=== PATIENT | female | born 1935 | race Two or more races ===

== ENCOUNTER → 2017-06-05 | Outpatient (CLI) | payer MEDICARE, BC ==
--- NOTE | 2017-06-05 16:08 | PE ---
EXAMINATION TYPE: PET CT fusion skull to thigh DATE OF EXAM: 06/05/2017 COMPARISON: Chest x-ray April 19, 2017 HISTORY: Solitary pulmonary nodule per order. History of right-sided breast cancer 2005. TECHNIQUE: Following the intravenous administration of 13.699 mCi of F-18 FDG, whole body images are performed from the skull base to the midthigh. Images are reviewed on the computer in the coronal, axial, and sagittal planes. Reconstructed rotating images are created on independent workstation and reviewed on the computer. A localization and attenuation correction CT is performed in conjunction with the PET scan. SCAN: Initial Scan FINDINGS: SKULL BASE AND NECK: Increased uptake at level of thyroid gland supraclavicular region with adjacent prominent lymph nodes favor supraclavicular adenopathy over primary thyroid lesions axial image 42. There is additional high right paraesophageal hypermetabolic 1.0 x 1.0 cm lymph node with max SUV 5.6 1 on axial image 45. CHEST, MEDIASTINUM, AND HILAR REGION: There is background moderate emphysematous change suspected. Th ere is moderate size right pleural effusion with associated compressive atelectasis. Registered motio n artifact degradation is seen. There are scattered hypermetabolic nodules throughout the right lung and to lesser degree in the left lung. For reference posterior lingular nodule measures 1.6 x 1.1 cm axial image 75 with mild hyperme tabolic uptake, max SUV of 2.73. For reference anterior right middle lobe nodule measures 1.4 x 1.0 c m axial image 69 with max SUV of 4.93. This nodule abuts the pleural surface. There is hypermetabolic right paratracheal lymph node measuring 1.2 x 1.1 cm on axial image 57 with m ax SUV of 4.61. There is confluent hypermetabolic uptake at subcarinal level encasing the bronchus in termedius near axial image 66, max SUV is 5.92. There is suspicious left hilar hypermetabolic lymph n ode axial image 67 with max SUV 3.19. ABDOMEN AND PELVIS: No adrenal masses are noted. There is slightly more prominent hypermetabolic upta ke upper pole level right kidney seen PET image 115 could reflect prominent renal calyx, renal neopla sm cannot be excluded. No obvious abnormality is seen on CT images. Favor normal excretion. Further w orkup advised to confirm. Remainder of abdomen and pelvis shows no suspicious hypermetabolic uptake. Normal bladder excretion i s seen. OSSEOUS STRUCTURES: There is mottled hypermetabolic uptake in right proximal femur extending through femoral neck and intertrochanteric level. There is additional hypermetabolic sclerotic area left yanira c bone near initial tuberosity axial image 185. There is hypermetabolic uptake right sternoclavicular joint axial image 50. There is hypermetabolic uptake midthoracic vertebra as well as right aspect T1 2 vertebra axial image 103 that corresponds to irregular sclerotic area extending into pedicle. Findi ng suggest osseous metastatic disease. OTHER CT: Moderate calcified plaque bilateral carotid bulbs is seen. There is cardiomegaly with severe biatrial dilatation. There is dense calcification level of mitral v alvular annulus. Right breast is surgically absent. Surgical clips right axillary are seen. Distended gallbladder is present. Sigmoid colonic diverticulosis is seen without CT evidence for acute diverticulitis. IMPRESSION: PET CT findings are consistent with diffuse metastatic disease with thoracic adenopathy, definitive right lung nodules, probable left lung nodules, and osseous metastatic disease as detailed above. Consider primary source recurrent breast neoplasm. Moderate size right-sided effusion does no t show increased hypermetabolic uptake. Advise follow-up imaging of the kidneys.
== END | disposition home or self-care (01) ==
LOC: RADPETMAIN 12:11
PROVIDERS: ATTEND Internal Medicine Critical Care Medicine
DX: J90 Pleural effusion, not elsewhere classified (principal)
CPT/HCPCS: 78815; A9552

== ENCOUNTER → 2017-06-17 | Day surgery (SDC) | payer MEDICARE, BC ==
[~2017-06-17] MED LIST: SODIUM CHLORIDE 0.9% 500 ML in EMPTY BAG 1 BAG IV PRN
[2017-06-17 11:49] VITALS: BP 142/79; PULSE 99
[2017-06-17 11:51] VITALS: RESP 16; TEMP 98
--- NOTE | 2017-06-17 12:07 | US ---
EXAMINATION TYPE: US chest DATE OF EXAM: 06/17/2017 COMPARISON: 03/06/2017 CLINICAL HISTORY: J90 Pleural Effusion, C50.919, R91.8 Nodule. SOB, right effusion, breast CA EXAM MEASUREMENTS: Right Pleural Effusion fluid pocket: 11.9 cm Right skin to fluid thickness: 3.6 cm Right side marked for possible thoracentesis outside the dept. Pulmonologists are able to review the images in the patient?s EMR. IMPRESSIONS: Large right pleural effusion
--- NOTE | 2017-06-17 13:24 | XR ---
EXAMINATION TYPE: XR chest 1V portable DATE OF EXAM: 06/17/2017 COMPARISON: PET/CT June 05, 2017. Chest x-ray April 19, 2017. HISTORY: Right-sided thoracentesis. TECHNIQUE: Single frontal view of the chest is obtained. FINDINGS: Osseous structures remain demineralized. There is underlying scoliosis in the upper lumbar spine redemonstrated. There is cardiomegaly with atherosclerotic thoracic aorta. There is small to m oderate right pleural effusion remains present despite right-sided thoracentesis. There is chronic pa renchymal change bilaterally without sizable pneumothorax. Scattered nodules on PET/CT are less well seen on x-ray. Dense mitral annular calcifications are redemonstrated. IMPRESSION: No sizable pneumothorax after right-sided thoracentesis
[2017-06-17 20:40] LABS: Appearance,BF Clear; Color,BF Yellow; Nucleated Cells, Body Fluid 1060 /uL; RBC, Body Fluid 275 /uL
[2017-06-17 20:42] LABS: Mononuclear WBC,Body Fluid 95 %; Polynuclear WBC,Body Fluid 5 %
--- NOTE | 2017-06-17 20:45 | OP ---
OPERATIVE REPORT DATE OF SERVICE: 06/17/2017. DESCRIPTION OF PROCEDURE: A time-out was completed verifying correct patient, procedure, site, positioning, and implant (s) or special equipment if applicable. The right posterior chest was marked and ultrasound guidance was used and appropriate fluid pocket was identified and marked. Patient was positioned, prepped and draped in usual sterile fashion. Lidocaine was used to anesthetize the area. A Thoracentesis catheter was introduced into the pleural space and fluid was removed. Blood loss was none. A chest x-ray was ordered to evaluate for pneumothorax, after the procedure was performed. Total Fluid Removed was 500 mL, from the right pleural space. Fluid will be sent for appropriate laboratory tests. Patient tolerated the procedure well and there were no complications. MMODL / IJN: [id number] /
[2017-06-18 01:58] LABS: Total Protein, Body Fluid 2794 mg/dL
== END ==
LOC: PROCWHC3 10:33
PROVIDERS: ATTEND Internal Medicine Critical Care Medicine
DX: J90 Pleural effusion, not elsewhere classified (principal); C50.919 Malignant neoplasm of unspecified site of unspecified female breast
CPT/HCPCS: 87798 ×3; 87496; 87498; 87529; 88108; 88305; 89050; 88342; 87252; 87502; 87634; 88341; 87070; 87205; 87116; 87102; 87206; 82945; 83615; 84157; 71045; 76604; 32554; J2001

== ENCOUNTER 2017-08-31 16:57 | Emergency (ER) | payer MEDICARE, BC ==
[2017-08-31] MEDS ORDERED: FUROSEMIDE 10 MG/ML 4 ML VIAL IV STA (17:20)
--- NOTE | 2017-08-31 17:26 | ED ---
General Adult HPI - General Chief complaint: Shortness of Breath Stated complaint: Fluid on lungs Time Seen by Provider: 08/31/17 17:07 Source: patient, family, RN notes reviewed Mode of arrival: wheelchair Limitations: no limitations - History of Present Illness Initial comments: Patient is a pleasant 81-year-old female presenting to the emergency Department with dyspnea. Symptoms are somewhat chronic however worse the past couple of days. Patient was at her oncologist office today. Patient had outpatient CT and x-ray done as well as some blood work. Patient was advised come the emergency department. Patient does admit to mild nonproductive cough. Dyspnea does worsen with exertion. Legs are mildly swollen. No chest pain. Patient does see oncology secondary to recurrent breast cancer and is currently undergoing treatment. - Related Data Home Medications Medication Instructions Recorded Confirmed Atorvastatin [Lipitor] 40 mg PO Q72H 03/05/17 08/31/17 Cholecalciferol [Vitamin D3] 1,000 unit PO DAILY@0800 03/05/17 08/31/17 Furosemide [Lasix] 20 mg PO DAILY 03/05/17 08/31/17 Levothyroxine Sodium [Synthroid] 200 mcg PO DAILY@0600 03/05/17 08/31/17 Omeprazole [PriLOSEC] 20 mg PO DAILY@0800 03/05/17 08/31/17 Vit C/E/Zn/Coppr/Lutein/Zeaxan 1 cap PO BID 03/05/17 08/31/17 [Preservision Areds 2 Softgel] Acetaminophen Tab [Tylenol Tab] 500 mg PO Q6HR PRN 08/31/17 08/31/17 Dronabinol [Marinol] 5 mg PO DAILY 08/31/17 08/31/17 busPIRone HCl [Buspar] 2.5 mg PO BID 08/31/17 08/31/17 traMADol HCL [Ultram] 50 mg PO Q6HR PRN 08/31/17 08/31/17 Previous Rx's Medication Instructions Recorded Apixaban [Eliquis] 2.5 mg PO BID #60 tablet 03/10/17 Lisinopril [Zestril] 5 mg PO DAILY #30 tab 03/10/17 Metoprolol Tartrate [Lopressor] 12.5 mg PO TID #90 tab 11/01/17 Allergies Allergy/AdvReac Type Severity Reaction Status Date / Time verapamil AdvReac Unknown Verified 08/31/17 17:33 Review of Systems ROS Statement: Those systems with pertinent positive or pertinent negative responses have been documented in the HPI. ROS Other: All systems not noted in ROS Statement are negative. Constitutional: Denies: fever Eyes: Denies: eye pain ENT: Denies: ear pain Respiratory: Reports: cough, dyspnea Cardiovascular: Denies: chest pain Endocrine: Reports: fatigue Gastrointestinal: Denies: abdominal pain Genitourinary: Denies: dysuria Musculoskeletal: Denies: back pain Skin: Denies: rash Neurological: Denies: weakness Past Medical History Past Medical History: Atrial Fibrillation, Cancer, CVA/TIA, Hypertension, Osteoarthritis (OA), Thyroid Disorder Additional Past Medical History / Comment(s): rt breast cancer -had sx and chemo 2004, tia, past gout, rt eye macular degeneration. C/o "leg cramps lt lt foot/ankle daily" History of Any Multi-Drug Resistant Organisms: None Reported Past Surgical History: Breast Surgery Additional Past Surgical History / Comment(s): Right masectomy, cataracts. "HAD A PNE VACCINE IN LESS THAN 5 YEARS NOT SURE OF DATE-OFFICE CLOSED AT TIME OF THIS ADMIT Past Anesthesia/Blood Transfusion Reactions: No Reported Reaction Past Psychological History: Anxiety Smoking Status: Never smoker Past Alcohol Use History: Rare Past Drug Use History: None Reported - Past Family History Father Family Medical History: Cancer Additional Family Medical History / Comment(s): lung cancer-was smoker. Mother Family Medical History: No Reported History Additional Family Medical History / Comment(s): " from old age" Brother(s) Family Medical History: Cancer Additional Family Medical History / Comment(s): lung cancer-smoker. General Exam Limitations: no limitations General appearance: alert, in no apparent distress Head exam: Present: atraumatic Eye exam: Present: normal appearance, PERRL ENT exam: Present: normal oropharynx Neck exam: Present: normal inspection Respiratory exam: Present: decreased breath sounds (Especially on the right base ) Cardiovascular Exam: Present: irregular rhythm GI/Abdominal exam: Present: soft. Absent: tenderness Extremities exam: Present: pedal edema. Absent: calf tenderness Neurological exam: Present: alert Psychiatric exam: Present: normal affect, normal mood Skin exam: Present: normal color Course Vital Signs 08/31/17 08/31/17 08/31/17 17:09 17:38 19:01 Temperature 99.9 F H Pulse Rate 105 H 122 H 109 H Respiratory 20 16 16 Rate Blood Pressure 142/104 166/94 166/104 O2 Sat by Pulse 97 96 97 Oximetry - Reevaluation(s) Reevaluation #1: 08/31/17 17:25 Blood work prior to arrival shows white blood cell count of 3.1, hemoglobin 12.9 , hematocrit 39.3, platelet 181. Two-view chest x-ray shows COPD with stable bilateral airspace disease and pleural effusion. Interstitial lung disease or venous congestion is considered. Computed tomography scan of the chest shows no pulmonary embolism. Cardiomegaly with moderate right and small left effusions. Suspected CHF exacerbation. New alveolar and interstitial edema. Enlarging nodules scattered with metastatic lesion T12. Medical Decision Making - Medical Decision Making Patient reevaluated and resting comfortably in bed. Blood pressure is high. Patient is requesting discharge multiple times. Patient refuses admission. Case was discussed in detail with Dr. Gonzalez who is comfortable with this. Patient states she does have a known history of CHF with similar symptoms. Patient did not take her blood pressure medicine earlier today. Family is present and also requesting discharge. It is recommended blood pressure be improved prior to discharge however they do not want to wait for that. At this time they're agreeable to provide patient's home medicine prior to discharge. - Lab Data Result diagrams: 08/31/17 17:36 Lab Results 08/31/17 08/31/17 08/31/17 Range/Units 17:36 17:36 17:36 PT (9.0-12.0) sec INR (<1.2) APTT (22.0-30.0) sec Sodium 139 (137-145) mmol/L Potassium 3.5 (3.5-5.1) mmol/L Chloride 101 (98-107) mmol/L Carbon Dioxide 23 (22-30) mmol/L Anion Gap 15 mmol/L BUN 17 (7-17) mg/dL Creatinine 0.60 (0.52-1.04) mg/dL Est GFR (CKD-EPI)AfAm >90 (>60 ml/min/1.73 sqM) Est GFR (CKD-EPI)NonAf 85 (>60 ml/min/1.73 sqM) Glucose 103 H (74-99) mg/dL Calcium 9.6 (8.4-10.2) mg/dL Total Bilirubin 0.9 (0.2-1.3) mg/dL AST 105 H (14-36) U/L ALT 99 H (9-52) U/L Alkaline Phosphatase 128 H (38-126) U/L Total Creatine Kinase 159 H (30-135) U/L CK-MB (CK-2) 2.7 H* (0.0-2.4) ng/mL CK-MB (CK-2) Rel Index 1.7 Troponin I 0.025 (0.000-0.034) ng/mL NT-Pro-B Natriuret Pep 1590 pg/mL Total Protein 7.3 (6.3-8.2) g/dL Albumin 4.0 (3.5-5.0) g/dL 08/31/17 Range/Units 17:36 PT 11.6 (9.0-12.0) sec INR 1.2 H (<1.2) APTT 21.0 L (22.0-30.0) sec Sodium (137-145) mmol/L Potassium (3.5-5.1) mmol/L Chloride (98-107) mmol/L Carbon Dioxide (22-30) mmol/L Anion Gap mmol/L BUN (7-17) mg/dL Creatinine (0.52-1.04) mg/dL Est GFR (CKD-EPI)AfAm (>60 ml/min/1.73 sqM) Est GFR (CKD-EPI)NonAf (>60 ml/min/1.73 sqM) Glucose (74-99) mg/dL Calcium (8.4-10.2) mg/dL Total Bilirubin (0.2-1.3) mg/dL AST (14-36) U/L ALT (9-52) U/L Alkaline Phosphatase (38-126) U/L Total Creatine Kinase (30-135) U/L CK-MB (CK-2) (0.0-2.4) ng/mL CK-MB (CK-2) Rel Index Troponin I (0.000-0.034) ng/mL NT-Pro-B Natriuret Pep pg/mL Total Protein (6.3-8.2) g/dL Albumin (3.5-5.0) g/dL Disposition Clinical Impression: CHF (congestive heart failure) Disposition: HOME SELF-CARE Condition: Stable Instructions: Heart Failure (ED) Additional Instructions: Please follow-up with primary care physician tomorrow as well as Dr. Gonzalez. Return for difficulty breathing, chest pain, uncontrolled blood pressure, worsening symptoms or other concerns. Please take 1 additional dose of Lasix for the next 3 days. Is patient prescribed a controlled substance at d/c from ED?: No Referrals: Nonstaff,Physician [REFERRING] - 1-2 days Time of Disposition: 19:33
[2017-08-31 18:07] LABS: INR 1.2 (<1.2); Prothrombin Time 11.6 sec (9.0-12.0)
[2017-08-31 18:14] LABS: ALT 99 U/L (9-52); AST 105 U/L (14-36); Alkaline Phosphatase 128 U/L (38-126); Anion Gap 15 mmol/L; Blood Urea Nitrogen 17 mg/dL (7-17); Calcium 9.6 mg/dL (8.4-10.2); Carbon Dioxide 23 mmol/L (22-30); Chloride 101 mmol/L (98-107); Glucose 103 mg/dL (74-99); Sodium 139 mmol/L (137-145); Total Bilirubin 0.9 mg/dL (0.2-1.3); Total Protein 7.3 g/dL (6.3-8.2)
[2017-08-31 18:16] LABS: Potassium 3.5 mmol/L (3.5-5.1)
[2017-08-31 18:30] LABS: Troponin I 0.025 ng/mL (0.000-0.034)
[2017-08-31 18:31] LABS: Creatine Kinase MB 2.7 ng/mL (0.0-2.4)
[2017-08-31 19:01] VITALS: PULSE 109
[2017-08-31] MEDS ORDERED: METOPROLOL TARTRATE 12.5 MG TAB PO STA (19:34)
[2017-08-31] MEDS ORDERED: LISINOPRIL 5 MG TAB PO STA (19:34)
[2017-08-31 19:38] VITALS: BP 156/80; RESP 19
[2017-08-31 20:10] VITALS: TEMP 97.8
== END 2017-08-31 20:09 | disposition home or self-care (01) ==
LOC: EC 16:57
DX: I11.0 Hypertensive heart disease with heart failure (principal); I50.9 Heart failure, unspecified; I48.91 Unspecified atrial fibrillation; E07.9 Disorder of thyroid, unspecified; F41.9 Anxiety disorder, unspecified; Z85.3 Personal history of malignant neoplasm of breast; Z79.899 Other long term (current) drug therapy; Z88.8 Allergy status to other drugs, medicaments and biological substances; Z53.29 Procedure and treatment not carried out because of patient's decision for other reasons; Z86.73 Personal history of transient ischemic attack (TIA), and cerebral infarction without residual deficits
CPT/HCPCS: 99285 ×2; 96374 ×2; 36415 ×2; 83880; 80053; 82565; 82550; 82553; 84520; 84484; 85610; 85730; 71046; 71275; 96372; 96402; J1940; J9395; J0897; Q9967

== ENCOUNTER 2017-09-22 10:38 | Day surgery (SDC) | payer MEDICARE, BC ==
[2017-09-22 11:40] VITALS: BP 129/93; PULSE 127; TEMP 97.7
[2017-09-22 11:41] VITALS: RESP 20
--- NOTE | 2017-09-22 12:40 | XR ---
EXAMINATION TYPE: XR chest 1V portable DATE OF EXAM: 09/22/2017 Comparison: 08/31/2017 Clinical History: 81-year-old female post thoracentesis Findings: There is small residual right-sided pleural effusion with meniscus tracking up the right lateral ches t wall to the mid lung level. Adjacent right basilar density. Patchy opacity throughout the left lung has increased particularly at the mid lung and lower lung levels. Diffuse interstitial prominence. H eart mildly enlarged. Atherosclerotic arch calcifications. Surgical clips at the right axilla. No pili reciable pneumothorax. Impression: 1. Residual small right pleural effusion. Adjacent atelectasis and/or consolidation. No appreciable p neumothorax. 2. Worsening opacity left mid and lower lung. Given interstitial prominence and cardiomegaly, correla te for CHF and developing pulmonary edema.
--- NOTE | 2017-09-22 12:41 | PCN ---
PROCEDURE NOTE PROCEDURE: Right thoracentesis. INDICATION: Pleural effusion. There was informed consent and universal timeout. OPERATORS: Dr. Castañeda and Dr. Felix. PROCEDURE: A time-out was completed verifying correct patient, procedure, site, positioning , and implant (s) or special equipment if applicable. Ultrasound guidance used and appropriate fluid pocket was identified and marked. Patient was positioned, prepped and draped in usual sterile fashion. Lidocaine was used to anesthetize the area. A Thoracentesis catheter was introduced into the pleural space and fluid was removed. Blood loss was none. A chest x-ray was ordered to evaluate for pneumothorax. Total Fluid Removed: 1250 mL Color of Fluid Fluid was not sent for appropriate laboratory tests. Patient tolerated the procedure well and there were no complications. There was 1250 mL removed from the right pleural space. The fluid was not sent for analysis as the patient had fluid analyzed prior. There was no immediate complication. A chest x-ray was done to make sure there was no pneumothorax. MMODL / IJN: [id number] /
== END 2017-09-22 15:57 | disposition home or self-care (01) ==
LOC: PROCWHC3 10:38
PROVIDERS: ATTEND Internal Medicine Critical Care Medicine
DX: J90 Pleural effusion, not elsewhere classified (principal)
CPT/HCPCS: 71045; 32554; J2001

== ENCOUNTER → 2017-09-22 | Outpatient (CLI) | payer MEDICARE, BC ==
--- NOTE | 2017-09-22 11:28 | US ---
EXAMINATION TYPE: US chest DATE OF EXAM: 09/22/2017 COMPARISON: CT 08/31/2017 CLINICAL HISTORY: 81-year-old female J91.8 R SIDED PLEURAL EFFUSION. SOB, pleural effusion RT TECHNIQUE: Multiple sonographic images of the posterior lower right hemithorax were obtained for asse ssment of pleural effusion. FINDINGS: EXAM MEASUREMENTS: Right Pleural Effusion fluid pocket: 11.7 cm Right skin surface to fluid distance: 3.9 cm Pleural-based nodularity is noted. Right side marked for possible thoracentesis outside the dept. Pulmonologists are able to review the images in the patient?s EMR. IMPRESSIONS: 1. Moderate to large right effusion. 2. Some pleural-based nodularity suggests underlying metastatic disease.
== END | disposition home or self-care (01) ==
LOC: RADUSWWP 10:21
PROVIDERS: ATTEND Internal Medicine Critical Care Medicine
DX: J90 Pleural effusion, not elsewhere classified (principal); R91.8 Other nonspecific abnormal finding of lung field
CPT/HCPCS: 76604

== ENCOUNTER 2017-09-23 10:16 | Inpatient (IN) | payer MEDICARE, BC ==
[2017-09-23] MEDS ORDERED: LORazepam 2 MG/ML INJ IV STA (11:39)
[2017-09-23] MEDS ORDERED: SODIUM CHLORIDE 0.9% 1,000 ML IV STA (11:39)
[2017-09-23] MEDS ORDERED: IPRATROPIUM-ALBUTEROL 3 ML NEB INHALATION STA (11:39)
--- NOTE | 2017-09-23 12:01 | ED ---
General Adult HPI - General Chief complaint: Recheck/Abnormal Lab/Rx Stated complaint: Anxiety, weakness Time Seen by Provider: 09/23/17 10:53 Source: patient, family, RN notes reviewed, old records reviewed Mode of arrival: wheelchair Limitations: no limitations - History of Present Illness Initial comments: This is an 81-year-old female the ER for evaluation. Patient presents ER for nausea shortness of breath. Anxiety. Patient does have diagnosis of breast cancer with lung metastasis. Patient himself denies being anxious but states she cannot breathe, she was breathing rapidly during exam. Patient states she cannot breathe through her left nostril that is where she has the biggest issue. Per daughter symptoms are going on for 6 months with no improvement despite therapy. Recently prescribed on anxiety medication - Related Data Home Medications Medication Instructions Recorded Confirmed Atorvastatin [Lipitor] 40 mg PO Q72H 03/05/17 09/23/17 Cholecalciferol [Vitamin D3] 1,000 unit PO DAILY@0800 03/05/17 09/23/17 Furosemide [Lasix] 20 mg PO BID@0800,1400 03/05/17 09/23/17 Levothyroxine Sodium [Synthroid] 200 mcg PO DAILY@0600 03/05/17 09/23/17 Omeprazole [PriLOSEC] 20 mg PO DAILY@0800 03/05/17 09/23/17 Vit C/E/Zn/Coppr/Lutein/Zeaxan 1 cap PO BID 03/05/17 09/23/17 [Preservision Areds 2 Softgel] Dronabinol [Marinol] 5 mg PO DAILY 08/31/17 09/23/17 busPIRone HCl [Buspar] 2.5 mg PO BID 08/31/17 09/23/17 Megestrol [Megace] 400 mg PO DAILY 09/16/17 09/23/17 Palbociclib [Ibrance] 100 mg PO DAILY@0600 09/23/17 09/23/17 Potassium Chloride [Klor-Con 10] 10 meq PO DAILY@1400 09/23/17 09/23/17 Previous Rx's Medication Instructions Recorded Apixaban [Eliquis] 2.5 mg PO BID #60 tablet 03/10/17 Lisinopril [Zestril] 5 mg PO DAILY #30 tab 03/10/17 Metoprolol Tartrate [Lopressor] 12.5 mg PO TID #90 tab 03/10/17 Allergies Allergy/AdvReac Type Severity Reaction Status Date / Time verapamil AdvReac Unknown Verified 09/23/17 11:00 Review of Systems ROS Statement: Those systems with pertinent positive or pertinent negative responses have been documented in the HPI. ROS Other: All systems not noted in ROS Statement are negative. Past Medical History Past Medical History: Atrial Fibrillation, Cancer, CVA/TIA, Hypertension, Osteoarthritis (OA), Thyroid Disorder Additional Past Medical History / Comment(s): rt breast cancer, past gout, rt eye macular degeneration. C/o "leg cramps lt lt foot/ankle daily" History of Any Multi-Drug Resistant Organisms: None Reported Past Surgical History: Breast Surgery Additional Past Surgical History / Comment(s): Right masectomy, cataracts. "HAD A PNE VACCINE IN LESS THAN 5 YEARS NOT SURE OF DATE-OFFICE CLOSED AT TIME OF THIS ADMIT Past Anesthesia/Blood Transfusion Reactions: No Reported Reaction Past Psychological History: Anxiety Smoking Status: Never smoker Past Alcohol Use History: None Reported Past Drug Use History: None Reported - Past Family History Father Family Medical History: Cancer Additional Family Medical History / Comment(s): lung cancer-was smoker. Mother Family Medical History: No Reported History Additional Family Medical History / Comment(s): " from old age" Brother(s) Family Medical History: Cancer Additional Family Medical History / Comment(s): lung cancer-smoker. General Exam Limitations: no limitations General appearance: alert, in no apparent distress Head exam: Present: atraumatic, normocephalic, normal inspection Eye exam: Present: normal appearance, PERRL, EOMI. Absent: scleral icterus, conjunctival injection, periorbital swelling ENT exam: Present: normal exam, mucous membranes moist Neck exam: Present: normal inspection. Absent: tenderness, meningismus, lymphadenopathy Respiratory exam: Present: normal lung sounds bilaterally, wheezes. Absent: respiratory distress, rales, rhonchi, stridor Cardiovascular Exam: Present: tachycardia, irregular rhythm, normal heart sounds. Absent: systolic murmur, diastolic murmur, rubs, gallop, clicks GI/Abdominal exam: Present: soft, normal bowel sounds. Absent: distended, tenderness, guarding, rebound, rigid Extremities exam: Present: normal inspection, full ROM, normal capillary refill. Absent: tenderness, pedal edema, joint swelling, calf tenderness Back exam: Present: normal inspection Neurological exam: Present: alert, oriented X3, CN II-XII intact Psychiatric exam: Present: normal affect, normal mood Skin exam: Present: warm, dry, intact, normal color. Absent: rash Course Vital Signs 09/23/17 09/23/17 09/23/17 10:31 12:43 12:52 Temperature 98.1 F Pulse Rate 86 117 H 139 H Respiratory 20 Rate Blood Pressure 126/83 O2 Sat by Pulse 98 Oximetry - Reevaluation(s) Reevaluation #1: 09/23/17 13:06 Patient does have improved rate control at this time Reevaluation #2: 09/23/17 13:06 Patient states her shortness of breath is improved EKG Findings - EKG Comments: EKG Findings:: EKG shows A. fib with RVR rate 140, QRS 02, QTc 427 Medical Decision Making - Medical Decision Making 78 female the ER with shortness of breath, positive A. fib with RVR, patient to be admitted for rate control and investigation regarding other causes of shortness of breath - Lab Data Result diagrams: 09/23/17 12:26 Lab Results 09/23/17 Range/Units 12:26 Sodium 138 (137-145) mmol/L Potassium 4.8 (3.5-5.1) mmol/L Chloride 102 (98-107) mmol/L Carbon Dioxide 20 L (22-30) mmol/L Anion Gap 16 mmol/L BUN 27 H (7-17) mg/dL Creatinine 0.66 (0.52-1.04) mg/dL Est GFR (CKD-EPI)AfAm >90 (>60 ml/min/1.73 sqM) Est GFR (CKD-EPI)NonAf 82 (>60 ml/min/1.73 sqM) Glucose 106 H (74-99) mg/dL Calcium 8.9 (8.4-10.2) mg/dL Phosphorus 2.7 (2.5-4.5) mg/dL Magnesium 2.5 H (1.6-2.3) mg/dL Total Bilirubin 2.3 H (0.2-1.3) mg/dL AST 58 H (14-36) U/L ALT 60 H (9-52) U/L Alkaline Phosphatase 151 H (38-126) U/L Total Protein 7.0 (6.3-8.2) g/dL Albumin 3.7 (3.5-5.0) g/dL Disposition Clinical Impression: Atrial fibrillation with RVR Disposition: ADMITTED IP TO THIS HOSP Condition: Fair Is patient prescribed a controlled substance at d/c from ED?: No Referrals: Romel Greene MD [Primary Care Provider] - 1-2 days
[2017-09-23] MEDS ORDERED: DILTIAZEM 50 MG in SODIUM CHLORIDE 0.9% 40 ML IV ONE (12:08)
[2017-09-23 12:56] LABS: ALT 60 U/L (9-52); AST 58 U/L (14-36); Albumin 3.7 g/dL (3.5-5.0); Alkaline Phosphatase 151 U/L (38-126); Anion Gap 16 mmol/L; Blood Urea Nitrogen 27 mg/dL (7-17); Calcium 8.9 mg/dL (8.4-10.2); Carbon Dioxide 20 mmol/L (22-30); Chloride 102 mmol/L (98-107); Glucose 106 mg/dL (74-99); Magnesium 2.5 mg/dL (1.6-2.3); Phosphorus 2.7 mg/dL (2.5-4.5); Potassium 4.8 mmol/L (3.5-5.1); Sodium 138 mmol/L (137-145); Total Bilirubin 2.3 mg/dL (0.2-1.3)
[2017-09-23] MEDS ORDERED: NITROGLYCERIN SL TABS 0.4 MG TAB SUBLINGUAL PRN (13:04)
[2017-09-23] MEDS ORDERED: LORazepam 2 MG/ML INJ IV PRN (13:05)
[2017-09-23 13:20] LABS: Creatine Kinase MB 1.9 ng/mL (0.0-2.4); Troponin I 0.022 ng/mL (0.000-0.034)
--- NOTE | 2017-09-23 13:21 | XR ---
EXAMINATION TYPE: XR chest 2V DATE OF EXAM: 09/23/2017 COMPARISON: 09/22/2017 TECHNIQUE: PA and lateral views submitted. HISTORY: Shortness of breath FINDINGS: The lungs are clear and there is no pneumothorax, pleural effusion, or focal pneumonia. There is dif fuse interstitial pattern with patchy infiltrates bilaterally and small bilateral effusions greater o n the right. No pneumothorax. Diffuse osteopenia and arthropathy of the shoulders with surgical clips in the right axilla. Underlying COPD or chronic interstitial lung disease within the differential diagnosis. Annular calci fication noted. Hypertrophic and degenerative change of the spine. IMPRESSION: 1. Bilateral infiltrate and small effusion greater on the right Underlying CHF in the differential diagnosis correlate clinically. Pneumonia not excluded.
[2017-09-23 13:26] LABS: Anisocytosis Slight; Basophils % (A) 1 %; Eosinophils % (A) 0 %; HCT 45.3 % (34.0-46.0); HGB 15.3 gm/dL (11.4-16.0); Lymphocytes # (A) 0.7 k/uL (1.0-4.8); Lymphocytes % (A) 12 %; MCH 34.8 pg (25.0-35.0); MCHC 33.9 g/dL (31.0-37.0); MCV 102.6 fL (80.0-100.0); Macrocytosis Moderate; Mean Platelet Volume 7.6; Monocytes # (A) 0.5 k/uL (0-1.0); Monocytes % (A) 7 %; Neutrophils # (A) 4.8 k/uL (1.3-7.7); Neutrophils % (A) 78 %; Platelet Count 245 k/uL (150-450); RBC 4.41 m/uL (3.80-5.40); WBC 6.1 k/uL (3.8-10.6)
--- NOTE | 2017-09-23 13:32 | CT ---
EXAMINATION TYPE: CT sinus wo con DATE OF EXAM: 09/23/2017 COMPARISON: NONE HISTORY: Sinusitis, SOB CT DLP: 577.3 mGycm. Automated Exposure Control for Dose Reduction was Utilized. TECHNIQUE: CT scan of the sinuses is performed without contrast, axial images are obtained, coronal r eformatted images are also reviewed. FINDINGS: There is chronic periosteal thickening of the posterior right maxillary sinuses, however on ly scant mucosal thickening is seen within the anterior right mucosal sinus on image 1. Minimal mucos al thickening is also seen within the sphenoid sinus on the right. Remainder the visualized paranasal sinuses are well aerated. Minimal cerumen is seen within the external auditory canals. Nasal septum is overall midline. Maxillary spine, nasal septum and nasal bone are intact. Atherosclerosis of the i ntracranial vasculature is seen. Ostiomeatal complexes are patent. There is a large right-sided Latricia r cell that is nonobstructive. No mucosal hypertrophy on the left. Minimal mucosal hypertrophy of inf erior nasal turbinate on the right. Evaluation of the intracranial structures is limited given techni que, however there appears to be confluent nonspecific white matter change and symmetric prominence o f the ventricles and peripheral sulci most commonly related to age-related volume loss. IMPRESSION: 1. Minimal right maxillary and sphenoid mucosal thickening. Changes of chronic sinusitis. 2. No evidence of ostiomeatal occlusion. Large right-sided nonocclusive Lynn cell is seen. 3. Minimal cerumen within the external auditory canals with no middle ear or mastoid fluid. 4. Mild right inferior nasal turbinate mucosal hypertrophy.
[2017-09-23 19:29] LABS: Creatine Kinase MB 1.9 ng/mL (0.0-2.4); Troponin I 0.017 ng/mL (0.000-0.034)
[2017-09-23] MEDS: IPRATROPIUM-ALBUTEROL 3 ML NEB INHALATION PRN (19:43)
[2017-09-23] MEDS: busPIRone HCl 5 MG TAB PO SCH (20:17)
[2017-09-23] MEDS: APIXABAN 2.5 MG TABLET PO SCH (20:17)
[2017-09-23] MEDS: METOPROLOL TARTRATE 12.5 MG TAB PO SCH ×2 (20:17→20:19)
[2017-09-23] MEDS: ATORVASTATIN 40 MG TAB PO SCH (20:17)
[2017-09-23] MEDS: VIT A,C & E-LUTEIN-MINERALS 1 EACH TAB PO SCH (20:17)
[2017-09-23] MEDS: FUROSEMIDE 10 MG/ML 4 ML VIAL IV SCH (23:12)
--- NOTE | 2017-09-24 00:03 | HP ---
HISTORY AND PHYSICAL DATE OF ADMISSION: 09/23/2017 DATE OF SERVICE: 09/23/2017 PRESENTING COMPLAINT: Short of breath. HISTORY OF PRESENTING COMPLAINT: This is a very pleasant 81-year-old patient of Dr. Greene who lives by herself. Patient had a mastectomy in 2004 and now has had a recurrence, being followed by Dr. Gonzalez. Started to get chemotherapy. The patient is not able to give more details about the same. Patient presents with worsening shortness of breath coming on for 3 weeks, very slight cough, mild wheezing. No fever, chills, decreased appetite, weight loss. Some minimal leg swelling. Patient presented to the ER, was found to have bilateral interstitial prominence; also found to be in atrial fibrillation with rapid ventricular rate. Patient already was on Lopressor. Continue on that. Patient does take Eliquis at home. Cardiology was consulted. The patient is short of breath at rest. Denies any chest pressure. REVIEW OF SYSTEMS: CONSTITUTIONAL: Tired. HEENT: Decreased hearing. RESPIRATORY: As above. CARDIOVASCULAR: As above. GASTROINTESTINAL: None. GENITOURINARY: Urine incontinence. DERMATOLOGICAL: None. HEMATOLOGICAL: None. LYMPHATICS: None. PSYCHIATRY: None. NEUROLOGICAL: None. MUSCULOSKELETAL: Arthritic pain in the joints. PAST MEDICAL HISTORY: 1. Breast cancer in 2004. 2. Recurrent atrial fibrillation. 3. Hypertension. 4. Osteoarthritis. 5. Right mastectomy. 6. Gout. 7. Right eye macular degeneration. 8. Pleural effusion. PAST SURGICAL HISTORY: 1. Right mastectomy. 2. Cataract surgery. 3. Right thoracentesis. SOCIAL HISTORY: Lives in her apartment. Gets help from her daughters. No smoking. No alcohol. FAMILY HISTORY: Lung cancer. HOME MEDICATIONS: 1. Ibrance (oral chemo pill) 100 mg p.o. daily. 2. Megace 400 mg p.o. daily. 3. Marinol 5 mg p.o. daily. 4. BuSpar 2.5 p.o. b.i.d. 5. PreserVision 1 capsule p.o. b.i.d. 6. Klor-Con 10 mEq p.o. daily. 7. Lipitor 40 mg q.72 hours. 8. Prilosec 20 mg p.o. daily. 9. Lopressor 12.5 p.o. t.i.d. 10.Zestril 5 mg p.o. daily. 11.Lasix 20 mg p.o. b.i.d. 12.Vitamin D3 1000 units p.o. daily. 13.Synthroid 200 mcg p.o. daily. 14.Eliquis 2.5 p.o. b.i.d. ALLERGIES: VERAPAMIL. PHYSICAL EXAMINATION: VITAL SIGNS ON PRESENTATION: Temperature 98.1, pulse 140, respiration 20, blood pressure 126/83, pulse ox 98% on room appearance: GENERAL APPEARANCE: Average build. Lying in bed, anxious-appearing. Short of breath at rest. EYES: Pupils equal. Conjunctivae normal. HEENT: External appearance of nose and ears normal. Oral cavity normal. NECK: JVD unable to assess. Mass not palpable. RESPIRATORY: Effort increased. LUNGS: Decreased breath sounds. Prolonged expiration wheezing from crackles. CARDIOVASCULAR: Heart sounds irregular. Minimal edema. ABDOMEN: Soft, nontender. Liver and spleen not palpable. LYMPHATIC: No lymph node palpable in neck or axillae. PSYCHIATRY: Alert and oriented x3. Mood and affect anxious-appearing. NEUROLOGICAL: Pupils equal. Cranial nerves grossly intact. Power and sensation grossly intact. MUSCULOSKELETAL: Evidence of osteoarthritis, especially in the hands and wrists. INVESTIGATIONS: White count 6.1, hemoglobin 15.3, potassium 4.8, BUN 27, creatinine 0.66, bilirubin 2.3. Troponin 0.022, 0.017. ProBNP 3090. Influenza A and B negative. EKG shows atrial flutter with a variable rate. Chest x-ray reviewed. It shows cardiomegaly, venous cephalization and possible infiltrate, pleural fluid. Patient's proBNP is 3090. ASSESSMENT: 1. Atrial flutter with rapid ventricular rate. 2. Possible acute congestive heart failure exacerbation. Chest x-ray shows significant cardiomegaly, suspect systolic dysfunction. 3. 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 Castañeda; 1250 mL was removed yesterday. 4. Possible pericardial effusion. Need to rule out the same. 5. Essential hypertension. 6. Primary osteoarthritis in multiple joints. PLAN: Patient's home medications are resumed. Cardiology and Pulmonary were consulted. So was Oncology. Will order a 2-D echocardiogram. Patient will be put on breathing treatments, IV Lasix. Patient seems to have stage IV disease. Prognosis is not good. Patient wishes to be FULL CODE at this time. Will address this once we have a better picture from a malignancy standpoint. Patient is followed by Dr. Gonzalez. SCOTT / CALIXTON: [id number] /
[2017-09-24 06:27] LABS: Anisocytosis Slight; Basophils % (A) 1 %; Eosinophils # (A) 0.1 k/uL (0-0.7); Eosinophils % (A) 1 %; HCT 41.6 % (34.0-46.0); HGB 13.6 gm/dL (11.4-16.0); Lymphocytes # (A) 0.6 k/uL (1.0-4.8); Lymphocytes % (A) 9 %; MCH 34.1 pg (25.0-35.0); MCHC 32.6 g/dL (31.0-37.0); MCV 104.7 fL (80.0-100.0); Macrocytosis Moderate; Mean Platelet Volume 7.2; Monocytes # (A) 0.3 k/uL (0-1.0); Monocytes % (A) 5 %; Neutrophils # (A) 5.5 k/uL (1.3-7.7); Neutrophils % (A) 83 %; Platelet Count 247 k/uL (150-450); RBC 3.97 m/uL (3.80-5.40); RDW 17.3 % (11.5-15.5); WBC 6.6 k/uL (3.8-10.6)
[2017-09-24] MEDS: PANTOPRAZOLE 40 MG TABLET PO SCH (06:29)
[2017-09-24] MEDS: LEVOTHYROXINE 100 MCG TAB PO SCH (06:29)
[2017-09-24] MEDS: METOPROLOL TARTRATE 12.5 MG TAB PO SCH (06:30)
[2017-09-24] MEDS: VIT A,C & E-LUTEIN-MINERALS 1 EACH TAB PO SCH ×2 (06:30→16:46)
[2017-09-24 06:36] LABS: Anion Gap 14 mmol/L; Blood Urea Nitrogen 22 mg/dL (7-17); Calcium 8.2 mg/dL (8.4-10.2); Carbon Dioxide 20 mmol/L (22-30); Chloride 103 mmol/L (98-107); Cholesterol 136 mg/dL (<200); Glucose 99 mg/dL (74-99); HDL Cholesterol 29 mg/dL (40-60); LDL Cholesterol,Calculated 88 mg/dL (0-99); Sodium 137 mmol/L (137-145); Triglycerides 96 mg/dL (<150)
[2017-09-24] MEDS: IPRATROPIUM-ALBUTEROL 3 ML NEB INHALATION PRN ×3 (08:14→16:14)
[2017-09-24] MEDS: FUROSEMIDE 10 MG/ML 4 ML VIAL IV SCH ×3 (08:34→23:29)
[2017-09-24] MEDS: APIXABAN 2.5 MG TABLET PO SCH ×2 (08:34→19:38)
[2017-09-24] MEDS: busPIRone HCl 5 MG TAB PO SCH ×2 (08:34→19:38)
[2017-09-24] MEDS: MEGESTROL 400 MG/10 ML CUP PO SCH (08:35)
[2017-09-24] MEDS: LISINOPRIL 5 MG TAB PO SCH (08:35)
[2017-09-24] MEDS: DRONABINOL 2.5 MG CAP PO SCH (08:40)
[2017-09-24] MEDS ORDERED: METOPROLOL TARTRATE 12.5 MG TAB PO ONE (09:00)
--- NOTE | 2017-09-24 09:06 | P.CRDCN ---
History of Present Illness Consult date: 09/24/17 History of present illness: This is a 81-year-old female with history of hypertension, hyperlipidemia and persistent atrial fibrillation was recently diagnosed to have metastatic cancer with multiple lesions in the lungs and pleural effusion. Patient has been complaining of palpitations and shortness of breath. She was treated with high dose of Lasix and metoprolol combination. Her echo [place] in the past showed normal LV function. Her BNP was mildly elevated. Patient had pleural tap done by Dr. Castañeda couple of days ago. About 1250 mL was obtained. However this did not help her breathing. She came to the hospital with increasing shortness of breath. A chest x-ray showed evidence of residual pleural effusion on the right side and also increasing opacities in both lungs. She is admitted to the hospital with diagnosis of atrial fibrillation with RVR and possible CHF. Her proBNP is about 3000. She has been on IV Lasix since last visit. His been diuresing, but her shortness of breath hasn't improved. And we 'll get an echocardiogram. I'm going to add small dose of Aldactone. My belief is her symptoms of shortness of breath are related to metastatic lesion rather than CHF. A trial of steroids may be considered. Review of Systems REVIEW OF SYSTEMS: CONSTITUTIONAL: . Patient appears to be in distress with shortness of breath. EYES: Denies diplopia, blurring of vision EARS, NOSE, MOUTH, THROAT: Denies headaches, denies sore throat. CARDIOVASCULAR: As per HPI RESPIRATORY: As per HPI GASTROINTESTINAL: Denies change in appetite, denies abdominal pain, denies diarrhea GENITOURINARY: Denies hematuria, denies infections. MUSKULOSKELETAL: Denies pain, denies swelling. Denies any cramps or claudication INTEGUMENTARY: Denies rash, denies eczema. NEUROLOGICAL: Denies focal weakness, or visual disturbance. Denies any dizziness or syncope PSYCHIATRIC: Appears anxious HEMATOLOGIC/LYMPHATIC: Denies any bleeding, denies enlarged lymph nodes. Past Medical History Past Medical History: Atrial Fibrillation, Cancer, CVA/TIA, Hypertension, Osteoarthritis (OA), Thyroid Disorder Additional Past Medical History / Comment(s): rt breast cancer, past gout, rt eye macular degeneration. pleural effusion,past tia,had pne vaccine past 5 years but not sure of date and office closed at time of this admit. History of Any Multi-Drug Resistant Organisms: None Reported Past Surgical History: Breast Surgery Additional Past Surgical History / Comment(s): Right masectomy, cataracts. rt thorcentesis 09-22-17 Past Anesthesia/Blood Transfusion Reactions: No Reported Reaction Smoking Status: Never smoker - Past Family History Father Family Medical History: Cancer Additional Family Medical History / Comment(s): lung cancer-was smoker. Mother Family Medical History: No Reported History Additional Family Medical History / Comment(s): " from old age" Brother(s) Family Medical History: Cancer Additional Family Medical History / Comment(s): lung cancer-smoker. Medications and Allergies Home Medications Medication Instructions Recorded Confirmed Type Atorvastatin [Lipitor] 40 mg PO Q72H 03/05/17 09/23/17 History Cholecalciferol [Vitamin D3] 1,000 unit PO DAILY@0800 03/05/17 09/23/17 History Furosemide [Lasix] 20 mg PO BID@0800,1400 03/05/17 09/23/17 History Levothyroxine Sodium [Synthroid] 200 mcg PO DAILY@0600 03/05/17 09/23/17 History Omeprazole [PriLOSEC] 20 mg PO DAILY@0800 03/05/17 09/23/17 History Vit C/E/Zn/Coppr/Lutein/Zeaxan 1 cap PO BID 03/05/17 09/23/17 History [Preservision Areds 2 Softgel] Apixaban [Eliquis] 2.5 mg PO BID #60 tablet 03/10/17 09/23/17 Rx Lisinopril [Zestril] 5 mg PO DAILY #30 tab 03/10/17 09/23/17 Rx Metoprolol Tartrate [Lopressor] 12.5 mg PO TID #90 tab 03/10/17 09/23/17 Rx Dronabinol [Marinol] 5 mg PO DAILY 08/31/17 09/23/17 History busPIRone HCl [Buspar] 2.5 mg PO BID 08/31/17 09/23/17 History Megestrol [Megace] 400 mg PO DAILY 09/16/17 09/23/17 History Palbociclib [Ibrance] 100 mg PO DAILY@0600 09/23/17 09/23/17 History Potassium Chloride [Klor-Con 10] 10 meq PO DAILY@1400 09/23/17 09/23/17 History Allergies Allergy/AdvReac Type Severity Reaction Status Date / Time verapamil AdvReac Unknown Verified 09/23/17 11:00 Physical Exam Vitals: Vital Signs Temp Pulse Pulse Resp BP BP Pulse Ox 09/24/17 08:28 110 H 09/24/17 08:16 108 H 98 09/24/17 08:00 96.4 F L 81 126/80 98 09/24/17 03:36 97.7 F 94 30 H 128/83 98 09/23/17 23:33 97.7 F 92 26 H 124/69 96 09/23/17 20:00 96.6 F L 75 26 H 144/91 95 09/23/17 19:53 118 H 09/23/17 19:43 118 H 96 09/23/17 18:04 96.7 F L 142 H 38 H 141/88 94 L 09/23/17 17:03 118 H 16 134/78 98 09/23/17 15:00 109 H 16 164/92 98 09/23/17 13:53 98 F 102 H 16 148/98 99 09/23/17 12:52 139 H 09/23/17 12:43 117 H 09/23/17 10:31 98.1 F 86 20 126/83 98 Intake and Output 09/23/17 09/24/17 09/24/17 22:59 06:59 14:59 Intake Total 440 100 240 Output Total 250 Balance 440 -150 240 Intake: IV 440 100 Diltiazem 50 mg In Sodium 40 40 Chloride 0.9% 40 ml @ 5 MG/HR 5 mls/hr IV .Q10H ONE Rx#:[id number] Sodium Chloride 0.9% 1, 400 60 000 ml @ 100 mls/hr IV . Q10H STA Rx#:[id number] Oral 240 Output: Urine 250 Other: Voiding Method Bedside Commode Bedside Commode # Voids 1 Weight 53 kg GENERAL EXAM: Patient is alert and oriented and doesn't appear to be in any acute distress HEENT: Normocephalic. Normal reaction of pupils, equal size, normal range of extraocular motion. No erythema or exudates in the throat. NECK: No masses, no nuchal rigidity. CHEST: No chest wall deformity. LUNGS: Equal air entry with no crackles or wheeze. Bronchial breath sounds were heard HEART: S1 and S2 normal with irregular heart sounds ABDOMEN: No hepatosplenomegaly, normal bowel sounds, no guarding or rigidity. SKIN: No rashes CENTRAL NERVOUS SYSTEM: No focal deficits. EXTREMITIES: No cyanosis, clubbing or edema. Results 09/24/17 05:36 09/24/17 05:36 Cardiac Enzymes 09/23/17 09/23/17 09/23/17 Range/Units 12:26 12: 18:30 AST 58 H (14-36) U/L CK-MB (CK-2) 1.9 1.9 (0.0-2.4) ng/mL Troponin I 0.022 0.017 (0.000-0.034) ng/mL 09/24/17 Range/Units 00:22 AST (14-36) U/L CK-MB (CK-2) (0.0-2.4) ng/mL Troponin I 0.014 (0.000-0.034) ng/mL Lipids 09/24/17 Range/Units 05:36 Triglycerides 96 (<150) mg/dL Cholesterol 136 (<200) mg/dL HDL Cholesterol 29 L (40-60) mg/dL CBC 09/23/17 09/24/17 Range/Units 12:26 05:36 WBC 6.1 6.6 (3.8-10.6) k/uL RBC 4.41 3.97 (3.80-5.40) m/uL Hgb 15.3 13.6 (11.4-16.0) gm/dL Hct 45.3 41.6 (34.0-46.0) % Plt Count 245 247 (150-450) k/uL Comprehensive Metabolic Panel 09/23/17 09/24/17 Range/Units 12:26 05:36 Sodium 138 137 (137-145) mmol/L Potassium 4.8 4.0 (3.5-5.1) mmol/L Chloride 102 103 (98-107) mmol/L Carbon Dioxide 20 L 20 L (22-30) mmol/L BUN 27 H 22 H (7-17) mg/dL Creatinine 0.66 0.60 (0.52-1.04) mg/dL Glucose 106 H 99 (74-99) mg/dL Calcium 8.9 8.2 L (8.4-10.2) mg/dL AST 58 H (14-36) U/L ALT 60 H (9-52) U/L Alkaline Phosphatase 151 H (38-126) U/L Total Protein 7.0 (6.3-8.2) g/dL Albumin 3.7 (3.5-5.0) g/dL Current Medications Generic Name Dose Route Start Last Admin Trade Name Freq PRN Reason Stop Dose Admin Albuterol/Ipratropium 3 ml 09/23/17 13:05 09/24/17 08:14 Duoneb 0.5 Mg-3 Mg/3 Ml Soln INHALATION 3 ml RT-QID PRN Administration Shortness Of Breath Or Wheezing Apixaban 2.5 mg 09/23/17 21:00 09/24/17 08:34 Eliquis PO 2.5 mg BID ANDRZEJ Administration Atorvastatin Calcium 40 mg 09/23/17 21:00 09/23/17 20:17 Lipitor PO 40 mg Q72H ANDRZEJ Administration Buspirone HCl 2.5 mg 09/23/17 21:00 09/24/17 08:34 Buspar PO 2.5 mg BID ANDRZEJ Administration Dronabinol 5 mg 09/24/17 09:00 09/24/17 08:40 Marinol PO 5 mg DAILY ANDRZEJ Administration Furosemide 40 mg 09/24/17 00:00 09/24/17 08:34 Lasix IV 40 mg Q8HR ANDRZEJ Administration Levothyroxine Sodium 200 mcg 09/24/17 06:00 09/24/17 06:29 Synthroid PO 200 mcg DAILY@0600 ANDRZEJ Administration Lisinopril 5 mg 09/24/17 09:00 09/24/17 08:35 Zestril PO 5 mg DAILY ANDRZEJ Administration Lorazepam 1 mg 09/23/17 13:05 Ativan IV Q4HR PRN Anxiety Megestrol Acetate 400 mg 09/24/17 09:00 09/24/17 08:35 Megace PO 400 mg DAILY ANDRZEJ Administration Metoprolol Tartrate 25 mg 09/24/17 16:00 Lopressor PO TID ANDRZEJ Metoprolol Tartrate 12.5 mg 09/24/17 09:00 Lopressor PO 09/24/17 09:01 ONCE ONE Multivitamins/Minerals 1 each 09/23/17 20:00 09/24/17 06:30 Ivite PO 1 each BID-W/MEALS ANDRZEJ Administration Nitroglycerin 0.4 mg 09/23/17 13:04 Nitrostat SUBLINGUAL Q5M PRN Chest Pain Non-Formulary Medication 100 mg 09/24/17 06:00 Palbociclib [Ibrance] PO DAILY@0600 ANDRZEJ Pantoprazole Sodium 40 mg 09/24/17 07:30 09/24/17 06:29 Protonix PO 40 mg AC-[id number] ANDRZEJ Administration Spironolactone 12.5 mg 09/24/17 09:00 Aldactone PO DAILY ANDRZEJ Intake and Output 09/23/17 09/24/17 09/24/17 22:59 06:59 14:59 Intake Total 440 100 240 Output Total 250 Balance 440 -150 240 Intake: IV 440 100 Diltiazem 50 mg In Sodium 40 40 Chloride 0.9% 40 ml @ 5 MG/HR 5 mls/hr IV .Q10H ONE Rx#:[id number] Sodium Chloride 0.9% 1, 400 60 000 ml @ 100 mls/hr IV . Q10H STA Rx#:[id number] Oral 240 Output: Urine 250 Other: Voiding Method Bedside Commode Bedside Commode # Voids 1 Weight 53 kg 09/24/17 05:36 09/24/17 05:36 EKG Interpretations (text) Atrial fibrillation with RVR Assessment and Plan (1) Metastatic breast cancer Current Visit: Yes Status: Acute Code(s): C50.919 - MALIGNANT NEOPLASM OF UNSP SITE OF UNSPECIFIED FEMALE BREAST SNOMED Code(s): 515945334 (2) Atrial fibrillation with RVR Current Visit: Yes Status: Acute Code(s): I48.91 - UNSPECIFIED ATRIAL FIBRILLATION SNOMED Code(s): 739983641890793 (3) CHF (congestive heart failure) Current Visit: No Status: Acute Code(s): I50.9 - HEART FAILURE, UNSPECIFIED SNOMED Code(s): 49567721 Plan: We will continue current medical therapy. I will add small dose of Aldactone. She doesn't seem to be fluid overloaded. We will discuss with pulmonology regarding trying steroids. Prognosis is guarded. Echo is being done
[2017-09-24 10:16] LABS: Total Bilirubin 1.8 mg/dL (0.2-1.3)
--- NOTE | 2017-09-24 10:33 | ECHOF ---
Referral Reason:Chest pain and cardiomyopathy MEASUREMENTS -------- HEIGHT: 157.5 cm WEIGHT: 52.6 kg BP: 126/80 RVIDd: 2.8 cm (< 3.3) LA Diam: 5.0 cm (2.7 - 3.8) IVSd: 0.8 cm (0.6 - 1.1) LVIDd: 4.0 cm (3.9 - 5.3) LVPWd: 1.0 cm (0.6 - 1.1) IVSs: 1.2 cm LVIDs: 3.2 cm LVPWs: 1.3 cm EDV(Teich): 70 ml ESV(Teich): 41 ml EF(Teich): 41 % %FS: 20 % SV(Teich): 29 ml Ao Diam: 3.2 cm (2.0 - 3.7) AV Cusp: 0.9 cm (1.5 - 2.6) LA Diam: 4.8 cm (2.7 - 3.8) AV maxP.16 mmHg AV meanP.83 mmHg AR PHT: 374 ms RAP: 20.00 mmHg RVSP: 66.38 mmHg FINDINGS -------- Atrial fibrillation. This was a technically difficult study with suboptimal views. The left ventricular size is normal. Left ventricular wall thickness is normal. Overall left vent ricular systolic function is mildly impaired with, an EF between 45 - 50 %. The right ventricle is normal in size. The left atrium is markedly dilated. RA appears enlarged. Aortic valve is trileaflet and is moderately thickened. Trace amount of aortic regurgitation. Th ere is mild aortic stenosis present. Peak/mean gradient across the Aortic Valve is 21.16mmHg / 13.8 3mmHg. Moderate mitral regurgitation is present. Cannot exclude mitral valve prolapse , predominately a po steriorly directed jet. Severe tricuspid regurgitation present. There is moderate pulmonary hypertension. The right ventr icular systolic pressure, as measured by Doppler, is 66.38mmHg. Trace/mild (physiologic) pulmonic regurgitation. The aortic root size is normal. The inferior vena cava is dilated with no significant inspiratory collapse which is consistent estima rcahid right atrial pressure of >20 mmHg. The pericardium is normal. CONCLUSIONS -------- 1. Atrial fibrillation. 2. This was a technically difficult study with suboptimal views. 3. The left ventricular size is normal. 4. Left ventricular wall thickness is normal. 5. Overall left ventricular systolic function is mildly impaired with, an EF between 45 - 50 %. 6. The right ventricle is normal in size. 7. The left atrium is markedly dilated. 8. RA appears enlarged. 9. Aortic valve is trileaflet and is moderately thickened. 10. Trace amount of aortic regurgitation. 11. There is mild aortic stenosis present. 12. Peak/mean gradient across the Aortic Valve is 21.16mmHg / 13.83mmHg. 13. Moderate mitral regurgitation is present. 14. Cannot exclude mitral valve prolapse. 15. , predominately a posteriorly directed jet. 16. Severe tricuspid regurgitation present. 17. There is moderate pulmonary hypertension. 18. The right ventricular systolic pressure, as measured by Doppler, is 66.38mmHg. 19. Trace/mild (physiologic) pulmonic regurgitation. 20. The aortic root size is normal. 21. The inferior vena cava is dilated with no significant inspiratory collapse which is consistent es timated right atrial pressure of >20 mmHg. 22. The pericardium is normal. ERP BUSINESS ANALYST: Jenna Ann RDCS
--- NOTE | 2017-09-24 11:22 | P.CNPUL ---
History of Present Illness Consult date: 09/24/17 Requesting physician: Lopez Gomez Reason for consult: dyspnea Chief complaint: Shortness of breath History of present illness: This is a very pleasant 81-year-old female patient who follows with Dr. Beltrán as her primary care physician. She has a history of atrial fibrillation anticoagulated with Eliquis, congestive heart failure, CVA/TIA, hypertension, hypothyroidism, osteoarthritis. She also has a history of metastatic breast cancer and is currently on Ibrance. She is a lifelong nonsmoker. No history of COPD/emphysema/asthma. She does follow with Dr. Castañeda in our office. She originally had undergone a thoracentesis for moderate right-sided pleural effusion in May 2017. This was positive for metastatic breast cancer. There is also metastatic lesions throughout the skeletal. She had also undergone repeat thoracentesis just on 09/22/[address] Castañeda in the outpatient setting with another 1200 mL's of fluid removed. The patient has had complaints of shortness of breath for approximately 6 months now. She does have a history of anxiety. She breathes quite shallow and rapidly. Her daughters have noticed this for several months and it has not changed following the thoracentesis at all. She has been given anxiolytics in the past which have not really been proven to help with her tachypnea. She presented here to the emergency room for continued complaints of shortness of breath. Her chest x -ray as compared to the one on September 22 did reveal continued bilateral pleural effusions right greater than left. There is also increased fluid volume overload. She was found to be in atrial fibrillation with a rapid ventricular response initially requiring a Cardizem drip. Echocardiogram reveals mildly impaired left ventricular systolic function with ejection fraction between 45 and 50%. There is severe tricuspid regurgitation and moderate pulmonary hypertension with an RVSP of 66.38 mmHg. The patient is seen today in consultation on the selective care unit. She is currently sitting up in a chair at the bedside. She is awake and alert in no acute distress. She continues with rapid shallow respirations in the high 20s. She is maintaining good O2 saturations in the high 90s on just 2 L/m per nasal cannula. She's been afebrile. Slightly tachycardic. White count 6.6. Hemoglobin 13.6. Creatinine 0.60. Bicarb 20. Influenza screen negative. ProBNP 3090. Troponins negative 2. She has been initiated on Lasix 40 mg IV push every 8 hours and Aldactone. Continued on bronchodilators. Review of Systems Constitutional: Reports anorexia, Reports poor appetite, Reports weakness, Reports weight loss Eyes: bilateral decreased vision, denies blurred vision Ears: bilateral: decreased hearing Ears, nose, mouth and throat: Denies headache, Denies sore throat Breasts: Reports as per HPI Cardiovascular: Reports dyspnea on exertion, Reports irregular heart beat, Reports palpitations, Reports rapid heart beat, Reports shortness of breath Respiratory: Reports dyspnea Gastrointestinal: Reports loss of appetite Genitourinary: Denies dysuria, Denies hematuria Musculoskeletal: Reports gait dysfunction, Reports limitation of motion, Reports muscle weakness Integumentary: Reports color changes Neurological: Reports balance difficulties, Reports weakness Psychiatric: Reports anxiety Endocrine: Reports cold intolerance Hematologic/Lymphatic: Reports easy bruising Past Medical History Past Medical History: Atrial Fibrillation, Cancer, CVA/TIA, Hypertension, Osteoarthritis (OA), Thyroid Disorder Additional Past Medical History / Comment(s): rt breast cancer, past gout, rt eye macular degeneration. pleural effusion,past tia,had pne vaccine past 5 years but not sure of date and office closed at time of this admit. History of Any Multi-Drug Resistant Organisms: None Reported Past Surgical History: Breast Surgery Additional Past Surgical History / Comment(s): Right masectomy, cataracts. rt thorcentesis 09-22-17 Past Anesthesia/Blood Transfusion Reactions: No Reported Reaction Smoking Status: Never smoker - Past Family History Father Family Medical History: Cancer Additional Family Medical History / Comment(s): lung cancer-was smoker. Mother Family Medical History: No Reported History Additional Family Medical History / Comment(s): " from old age" Brother(s) Family Medical History: Cancer Additional Family Medical History / Comment(s): lung cancer-smoker. Medications and Allergies Home Medications Medication Instructions Recorded Confirmed Type Atorvastatin [Lipitor] 40 mg PO Q72H 03/05/17 09/23/17 History Cholecalciferol [Vitamin D3] 1,000 unit PO DAILY@0800 03/05/17 09/23/17 History Furosemide [Lasix] 20 mg PO BID@0800,1400 03/05/17 09/23/17 History Levothyroxine Sodium [Synthroid] 200 mcg PO DAILY@0600 03/05/17 09/23/17 History Omeprazole [PriLOSEC] 20 mg PO DAILY@0800 03/05/17 09/23/17 History Vit C/E/Zn/Coppr/Lutein/Zeaxan 1 cap PO BID 03/05/17 09/23/17 History [Preservision Areds 2 Softgel] Apixaban [Eliquis] 2.5 mg PO BID #60 tablet 03/10/17 09/23/17 Rx Lisinopril [Zestril] 5 mg PO DAILY #30 tab 03/10/17 09/23/17 Rx Metoprolol Tartrate [Lopressor] 12.5 mg PO TID #90 tab 03/10/17 09/23/17 Rx Dronabinol [Marinol] 5 mg PO DAILY 08/31/17 09/23/17 History busPIRone HCl [Buspar] 2.5 mg PO BID 08/31/17 09/23/17 History Megestrol [Megace] 400 mg PO DAILY 09/16/17 09/23/17 History Palbociclib [Ibrance] 100 mg PO DAILY@0600 09/23/17 09/23/17 History Potassium Chloride [Klor-Con 10] 10 meq PO DAILY@1400 09/23/17 09/23/17 History Allergies Allergy/AdvReac Type Severity Reaction Status Date / Time verapamil AdvReac Unknown Verified 09/23/17 11:00 Physical Exam Vitals: Vital Signs Temp Pulse Pulse Resp BP BP Pulse Ox 09/24/17 08:28 110 H 09/24/17 08:16 108 H 98 09/24/17 08:00 96.4 F L 81 126/80 98 09/24/17 03:36 97.7 F 94 30 H 128/83 98 09/23/17 23:33 97.7 F 92 26 H 124/69 96 09/23/17 20:00 96.6 F L 75 26 H 144/91 95 09/23/17 19:53 118 H 09/23/17 19:43 118 H 96 09/23/17 18:04 96.7 F L 142 H 38 H 141/88 94 L 09/23/17 17:03 118 H 16 134/78 98 09/23/17 15:00 109 H 16 164/92 98 09/23/17 13:53 98 F 102 H 16 148/98 99 09/23/17 12:52 139 H 09/23/17 12:43 117 H Intake and Output 09/23/17 09/24/17 09/24/17 22:59 06:59 14:59 Intake Total 440 100 240 Output Total 250 Balance 440 -150 240 Intake: IV 440 100 Diltiazem 50 mg In Sodium 40 40 Chloride 0.9% 40 ml @ 5 MG/HR 5 mls/hr IV .Q10H ONE Rx#:[id number] Sodium Chloride 0.9% 1, 400 60 000 ml @ 100 mls/hr IV . Q10H STA Rx#:[id number] Oral 240 Output: Urine 250 Other: Voiding Method Bedside Commode Bedside Commode # Voids 1 Weight 53 kg - Constitutional General appearance: no acute distress, thin - EENT Eyes: PERRLA ENT: hard of hearing, normal oropharynx Ears: bilateral: normal - Neck Neck: normal ROM Carotids: bilateral: upstroke normal Thyroid: bilateral: normal size - Respiratory Respiratory: right: diminished, dullness, bilateral: rales - Cardiovascular Rhythm: irregularly irregular Heart sounds: normal: S1, S2 - Gastrointestinal General gastrointestinal: normal bowel sounds, soft - Integumentary Integumentary: decreased turgor - Neurologic Neurologic: CNII-XII intact - Musculoskeletal Musculoskeletal: generalized weakness - Psychiatric Psychiatric: A&O x's 3, appropriate affect, intact judgment & insight Results - Laboratory Findings CBC and BMP: 09/24/17 05:36 09/24/17 05:36 Abnormal lab findings: Abnormal Labs 09/23/17 09/23/17 09/24/17 12:26 12:26 05:36 MCV 102.6 H RDW 17.0 H Lymphocytes # 0.7 L Carbon Dioxide 20 L 20 L BUN 27 H 22 H Glucose 106 H Calcium 8.2 L Magnesium 2.5 H Total Bilirubin 2.3 H AST 58 H ALT 60 H Alkaline Phosphatase 151 H HDL Cholesterol 29 L 09/24/17 09/24/17 05:36 05:36 MCV 104.7 H RDW 17.3 H Lymphocytes # 0.6 L Carbon Dioxide BUN Glucose Calcium Magnesium Total Bilirubin 1.8 H AST 49 H ALT 58 H Alkaline Phosphatase HDL Cholesterol - Diagnostic Findings Chest x-ray: image reviewed Assessment and Plan Assessment: Impression: #1 Acute hypoxic respiratory failure secondary to an acute exacerbation of systolic congestive heart failure and fluid volume overload. #2 Acute on chronic atrial fibrillation with a rapid ventricular response initially requiring Cardizem drip. Anticoagulated with Eliquis. #3 Severe tricuspid regurgitation with moderate pulmonary hypertension. #4 Recurrent bilateral pleural effusions right greater than left. Status post right-sided thoracentesis initially in May 2017 positive for metastatic breast cancer. Second right-sided thoracentesis performed 09/22/2017 in the outpatient setting. 1200 mL's removed. #5 Metastatic breast cancer with lung and skeletal involvement. Currently on Ibrance. #6 Tachypnea secondary to above. #7 Hypertension. #8 Hyperlipidemia. #9 Hypothyroidism. Plan: The patient was seen and evaluated by Dr. Bourne. Chest x-ray and labs are reviewed. We will continue with diuretics including Lasix 40 mg IV push every 8 hours. Continue Aldactone. Repeat a chest x-ray in the a.m. Monitor renal function. Continue bronchodilators. Beta blockers for rate control. Continue Eliquis. No plans for repeat thoracentesis at this time. If the patient has recurrent significant pleural effusion on the right we may at some point consider a Pleurx catheter placement. We will continue to follow and make further recommendations based on her clinical status. I, the cosigning physician, performed a history & physical examination of the patient. Lungs sounds basilar crackles more so on the right. Diminished in the right lung base.. Maintaining good O2 saturations in the 90s on 2 L/m per nasal cannula. I discussed the assessment and plan of care with my nurse practitioner, Alicia Felix. I attest to the above note as dictated by her. Time with Patient: Greater than 30
[2017-09-24] MEDS: PALBOCICLIB 100 MG PO SCH (12:22)
[2017-09-24] MEDS: SPIRONOLACTONE 25 MG TAB PO SCH (12:23)
[2017-09-24] MEDS: METOPROLOL TARTRATE 25 MG TAB PO SCH ×2 (16:46→21:20)
--- NOTE | 2017-09-24 18:17 | P.CONS ---
History of Present Illness - Reason for Consult Consult date: 09/24/17 Metastatic Breast Cancer Requesting physician: Baljit Owens - Chief Complaint Shortness of breath - History of Present Illness Savanah reports having increasing fatigue which she blames on A Fib, has excercise intolerence, reasonable performece status and quality of life, denied any constitutional symptoms of malignancy. Savanah had R Breast Cancer ( T2N1Mo ) in Mar 2005, Treated with R MRM, Adjuvant Chemotherapy followed by Endocrine therapy 06/15/17: Savanah not seen by us since 2011, she have been doing well till 4-6 months ago> developed progressive anorexia, weakness and weight loss. She was hospitalized at [facility] for Gi bleed due to Coagulopathy of Coumadin > started on Eliquis. She lost at least 20 lbs according to patient & family. Followed by Dr Castañeda due to ? lung consolidation> CT Scan of chest ([place]) revealed multiple pulmonary nodules and moderate mediastinal Lymphadenopathy and small Pleural effusion. PET Scan revealed suspecious uptake in all sites, as well as, hong lesion in R femur head and L ilium. She denies skeletal pain. In June 2017 - she underwent 2nd Thorcetesis, for recurrent pleural effusion. Pleural cytoogy ER+/DC-/ Her2- . CA15-3 elevated (150) C/W metastatic Breast cancer. July 2017 - Ibrance, Femara and Faslodex regimen was initiated. She was tolerating well with the exception of increased episodes of SOB and increased anxiety. Her Ibrance was held on 09/07/17 secondary to increasing liver function tests, these have started to trend down and was instructed to restart on . Recent hospitalization for exacerbation CHF and recurrent pleural effusion. She improved after diuresis. She was seen in the office this week by by Dr. Gonzalez and a therapeutic thoracentesis was ordered. 1250cc of fluid was removed. She continued to have SOB after thoracentesis and therefore she now presents to ER for further evaluation. Her most recent Ca15-3 was 54 (Showing decrease from prior to ibrance, promising for some control of disease). 08/05/17 Ca15-3 = 206. She has chronically shown increased effort with breathing intermittingly since May of this year. It appears to increase with anxiety, exertion, and exacerbations in her CHF. She has been advised to follow-up with cardiology to assume increased control of her underlying heart disease. Today she is sitting in chair with family around her. She states she can feel her heart beating quickly and from that time she becomes anxious and feels more short of breath. She is in mild distress and appears to fatigued quickly with her increased respiratory efforts. Review of Systems A 14 point review of systems assessed and completed and all negative except HPI Past Medical History Past Medical History: Atrial Fibrillation, Cancer, CVA/TIA, Hypertension, Osteoarthritis (OA), Thyroid Disorder Additional Past Medical History / Comment(s): rt breast cancer, past gout, rt eye macular degeneration. pleural effusion,past tia,had pne vaccine past 5 years but not sure of date and office closed at time of this admit. History of Any Multi-Drug Resistant Organisms: None Reported Past Surgical History: Breast Surgery Additional Past Surgical History / Comment(s): Right masectomy, cataracts. rt thorcentesis 09-22-17 Past Anesthesia/Blood Transfusion Reactions: No Reported Reaction Smoking Status: Never smoker - Past Family History Father Family Medical History: Cancer Additional Family Medical History / Comment(s): lung cancer-was smoker. Mother Family Medical History: No Reported History Additional Family Medical History / Comment(s): " from old age" Brother(s) Family Medical History: Cancer Additional Family Medical History / Comment(s): lung cancer-smoker. Medications and Allergies Home Medications Medication Instructions Recorded Confirmed Type Atorvastatin [Lipitor] 40 mg PO Q72H 03/05/17 09/23/17 History Cholecalciferol [Vitamin D3] 1,000 unit PO DAILY@0800 03/05/17 09/23/17 History Furosemide [Lasix] 20 mg PO BID@0800,1400 03/05/17 09/23/17 History Levothyroxine Sodium [Synthroid] 200 mcg PO DAILY@0600 03/05/17 09/23/17 History Omeprazole [PriLOSEC] 20 mg PO DAILY@0800 03/05/17 09/23/17 History Vit C/E/Zn/Coppr/Lutein/Zeaxan 1 cap PO BID 03/05/17 09/23/17 History [Preservision Areds 2 Softgel] Apixaban [Eliquis] 2.5 mg PO BID #60 tablet 03/10/17 09/23/17 Rx Lisinopril [Zestril] 5 mg PO DAILY #30 tab 03/10/17 09/23/17 Rx Metoprolol Tartrate [Lopressor] 12.5 mg PO TID #90 tab 03/10/17 09/23/17 Rx Dronabinol [Marinol] 5 mg PO DAILY 08/31/17 09/23/17 History busPIRone HCl [Buspar] 2.5 mg PO BID 08/31/17 09/23/17 History Megestrol [Megace] 400 mg PO DAILY 09/16/17 09/23/17 History Palbociclib [Ibrance] 100 mg PO DAILY@0600 09/23/17 09/23/17 History Potassium Chloride [Klor-Con 10] 10 meq PO DAILY@1400 09/23/17 09/23/17 History Allergies Allergy/AdvReac Type Severity Reaction Status Date / Time verapamil AdvReac Unknown Verified 09/23/17 11:00 Physical Exam Vitals: Vital Signs Temp Pulse Pulse Resp BP BP Pulse Ox 09/24/17 08:28 110 H 09/24/17 08:16 108 H 98 09/24/17 08:00 96.4 F L 81 126/80 98 09/24/17 03:36 97.7 F 94 30 H 128/83 98 09/23/17 23:33 97.7 F 92 26 H 124/69 96 09/23/17 20:00 96.6 F L 75 26 H 144/91 95 09/23/17 19:53 118 H 09/23/17 19:43 118 H 96 09/23/17 18:04 96.7 F L 142 H 38 H 141/88 94 L 09/23/17 17:03 118 H 16 134/78 98 09/23/17 15:00 109 H 16 164/92 98 09/23/17 13:53 98 F 102 H 16 148/98 99 09/23/17 12:52 139 H 09/23/17 12:43 117 H 09/23/17 10:31 98.1 F 86 20 126/83 98 Intake and Output 09/23/17 09/24/17 09/24/17 22:59 06:59 14:59 Intake Total 440 100 240 Output Total 250 Balance 440 -150 240 Intake: IV 440 100 Diltiazem 50 mg In Sodium 40 40 Chloride 0.9% 40 ml @ 5 MG/HR 5 mls/hr IV .Q10H ONE Rx#:[id number] Sodium Chloride 0.9% 1, 400 60 000 ml @ 100 mls/hr IV . Q10H STA Rx#:[id number] Oral 240 Output: Urine 250 Other: Voiding Method Bedside Commode Bedside Commode # Voids 1 Weight 53 kg - Constitutional General appearance: average body habitus, mild distress - EENT Eyes: EOMI, PERRLA, dentition normal ENT: hard of hearing, NA/AT, normal oropharynx - Neck Neck: normal ROM - Respiratory Respiratory: bilateral: diminished (Right greater than left) - Cardiovascular Rhythm: irregularly irregular leg Peripheral Edema: bilateral: 1+ - Gastrointestinal General gastrointestinal: normal bowel sounds, soft - Integumentary Integumentary: pale - Neurologic Non focal Neurologic: CNII-XII intact - Musculoskeletal Musculoskeletal: generalized weakness, strength equal bilaterally - Psychiatric Psychiatric: A&O x's 3, appropriate affect, intact judgment & insight Results CBC & Chem 7: 09/24/17 05:36 09/24/17 05:36 Labs: Abnormal Lab Results - Last 24 Hours (Table) 09/23/17 09/23/17 09/24/17 Range/Units 12:26 12:26 05:36 MCV 102.6 H (80.0-100.0) fL RDW 17.0 H (11.5-15.5) % Lymphocytes # 0.7 L (1.0-4.8) k/uL Carbon Dioxide 20 L 20 L (22-30) mmol/L BUN 27 H 22 H (7-17) mg/dL Glucose 106 H (74-99) mg/dL Calcium 8.2 L (8.4-10.2) mg/dL Magnesium 2.5 H (1.6-2.3) mg/dL Total Bilirubin 2.3 H (0.2-1.3) mg/dL AST 58 H (14-36) U/L ALT 60 H (9-52) U/L Alkaline Phosphatase 151 H (38-126) U/L HDL Cholesterol 29 L (40-60) mg/dL 09/24/17 Range/Units 05:36 MCV 104.7 H (80.0-100.0) fL RDW 17.3 H (11.5-15.5) % Lymphocytes # 0.6 L (1.0-4.8) k/uL Carbon Dioxide (22-30) mmol/L BUN (7-17) mg/dL Glucose (74-99) mg/dL Calcium (8.4-10.2) mg/dL Magnesium (1.6-2.3) mg/dL Total Bilirubin (0.2-1.3) mg/dL AST (14-36) U/L ALT (9-52) U/L Alkaline Phosphatase (38-126) U/L HDL Cholesterol (40-60) mg/dL Chest x-ray: report reviewed Assessment and Plan Plan: Assessment and Recommendations: 1. Metastatic Breast Cancer - Pleural fluid and T12 - Current treatment with Faslodex, Femara and Ibrance - Tumor markers are trending down - Most recent CT scans reviewed - Pleural Fluid positive for malignant cells from June Thoracentesis. - Continue on Femara, Ibrance and Faslodex at his time - Ok to continue ibrance during hospitalization, continue to monitor liver function - Plan to reassess disease progression with PET scan as outpatient. 2. Acute on Chronic Respiratory Failure - Likely multifactoral - Underlying Congestive Heart Failure, Atrial Fibrillation with RVR, Recurrent Pleural Effusion, Pulmonary Metastasis - Small component of anxiety - Pulmonary Following - Defer addition of steroids to pulmonology - Cardiology Following, would like to achieve decreased exacerbations of CHF and irregular heart rhythms, no improvement in symptoms with diuresis - Echocardiogram ? 3. Recurrent Pleural Effusion: - Status Post 1250cc Thoracentesis 4. Increased LFTs - Improving - Likely secondary to Ibrance, recently was held and now restarted after AST/ ALT improved. - Continue monitoring. Continue Hold Statin Ruba Goodrich AOFady Medical Oncology Nurse Practitioner Time with Patient: Greater than 30
[2017-09-24] MEDS: POTASSIUM CHLORIDE ER 10 MEQ TAB.ER.PRT PO SCH (19:42)
--- NOTE | 2017-09-24 20:13 | PN ---
PROGRESS NOTE DATE OF SERVICE: 09/24/2017 PRESENTING COMPLAINT: Short of breath. INTERVAL HISTORY: This patient has metastatic breast cancer, presented with acute CHF exacerbation, 2D echo showing EF of 45%. Breathing is somewhat better. The patient did tolerate some diet. Sitting up in a chair. Patient also was having atrial flutter/fibrillation. REVIEW OF SYSTEMS: Done for constitutional, cardiovascular, GI, pulmonary; relevant findings as above. CURRENT MEDICATIONS: Reviewed that include: 1. IV Lasix 40 mg q.8. 2. Lopressor 25 p.o. t.i.d. 3. Aldactone. EXAMINATION: Temperature 96.4, pulse 81, respirations 20, blood pressure 126/80, pulse ox 98% on 2L. GENERAL APPEARANCE: Sitting up in a chair, shade less anxious. EYES: Pupils equal. Conjunctivae normal. HEENT: External appearance of nose and ears normal. Oral cavity normal. NECK: JVD unable to assess. Mass not palpable. RESPIRATORY: Effort increased. LUNGS: Decreased breath sounds. Prolonged expiration. Decreased crackles. CARDIOVASCULAR: First and second sounds normal. Some edema. ABDOMEN: Soft nontender. Liver, spleen not palpable. PSYCHIATRY: Alert and oriented x3. Mood and affect less anxious-appearing. INVESTIGATIONS: White count 6.6. Potassium 4.0. ASSESSMENT: 1. Atrial flutter with rapid ventricular rate upon presentation, now into sinus rhythm. 2. Acute congestive heart failure exacerbation from systolic dysfunction, ejection fraction 45% with some clinical improvement, though slow to respond. 3. 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 Castañeda the day before admission. 4. Essential hypertension. 5. Primary osteoarthritis of multiple joints. 6. Moderate mitral regurgitation, severe tricuspid regurgitation, nonrheumatic. 7. Secondary pulmonary hypertension due to congestive heart failure/chronic obstructive pulmonary disease. PLAN: Continue the patient on IV Lasix, other medication and treatment plan. Care was discussed the patient. Two-D echocardiogram was noted. MMODL / IJN: [id number] /
[2017-09-25 06:31] LABS: Anisocytosis Slight; Basophils % (A) 1 %; Eosinophils # (A) 0.1 k/uL (0-0.7); Eosinophils % (A) 2 %; HGB 12.7 gm/dL (11.4-16.0); Lymphocytes # (A) 0.7 k/uL (1.0-4.8); Lymphocytes % (A) 11 %; MCH 33.7 pg (25.0-35.0); MCHC 32.7 g/dL (31.0-37.0); MCV 102.9 fL (80.0-100.0); Macrocytosis Moderate; Mean Platelet Volume 7.3; Monocytes # (A) 0.2 k/uL (0-1.0); Monocytes % (A) 4 %; Neutrophils % (A) 82 %; Platelet Count 310 k/uL (150-450); RBC 3.79 m/uL (3.80-5.40); RDW 16.5 % (11.5-15.5); WBC 6.1 k/uL (3.8-10.6)
[2017-09-25] MEDS: LEVOTHYROXINE 100 MCG TAB PO SCH (06:32)
[2017-09-25] MEDS: PANTOPRAZOLE 40 MG TABLET PO SCH (06:32)
[2017-09-25 06:42] LABS: Anion Gap 13 mmol/L; Blood Urea Nitrogen 28 mg/dL (7-17); Calcium 8.7 mg/dL (8.4-10.2); Carbon Dioxide 22 mmol/L (22-30); Chloride 98 mmol/L (98-107); Glucose 88 mg/dL (74-99); Potassium 4.6 mmol/L (3.5-5.1); Sodium 133 mmol/L (137-145)
[2017-09-25] MEDS: FUROSEMIDE 10 MG/ML 4 ML VIAL IV SCH ×2 (07:58→19:21)
[2017-09-25] MEDS: APIXABAN 2.5 MG TABLET PO SCH ×2 (07:58→20:34)
[2017-09-25] MEDS: LISINOPRIL 5 MG TAB PO SCH (07:58)
[2017-09-25] MEDS: busPIRone HCl 5 MG TAB PO SCH ×2 (07:59→20:34)
[2017-09-25] MEDS: MEGESTROL 400 MG/10 ML CUP PO SCH (07:59)
[2017-09-25] MEDS: VIT A,C & E-LUTEIN-MINERALS 1 EACH TAB PO SCH ×2 (07:59→16:47)
[2017-09-25] MEDS: METOPROLOL TARTRATE 25 MG TAB PO SCH ×3 (07:59→22:20)
[2017-09-25] MEDS: SPIRONOLACTONE 25 MG TAB PO SCH (08:00)
[2017-09-25] MEDS: POTASSIUM CHLORIDE ER 10 MEQ TAB.ER.PRT PO SCH ×2 (08:00→20:34)
[2017-09-25] MEDS: DRONABINOL 2.5 MG CAP PO SCH (08:04)
[2017-09-25] MEDS: IPRATROPIUM-ALBUTEROL 3 ML NEB INHALATION PRN ×3 (08:33→20:17)
--- NOTE | 2017-09-25 09:21 | XR ---
EXAMINATION TYPE: XR chest 2V DATE OF EXAM: 09/25/2017 COMPARISON: Prior chest x-ray 09/23/2017 HISTORY: Congestive heart failure TECHNIQUE: Frontal and lateral views of the chest are obtained. FINDINGS: The heart remains enlarged. Pleural parenchymal changes are similar to prior exam. Surgica l clips present in the right axilla. No evident pneumothorax. Suspect pleural effusion on the right. IMPRESSION: Findings are similar to prior exam. Correlate for congestive heart failure, pneumonia no t excluded.
--- NOTE | 2017-09-25 13:35 | P.PN ---
Subjective Progress Note Date: 09/25/17 Principal diagnosis: Acute hypoxic respiratory failure secondary to an acute exacerbation of systolic CHF and fluid volume overload This is a very pleasant 81-year-old female patient who follows with Dr. Beltrán as her primary care physician. She has a history of atrial fibrillation anticoagulated with Eliquis, congestive heart failure, CVA/TIA, hypertension, hypothyroidism, osteoarthritis. She also has a history of metastatic breast cancer and is currently on Ibrance. She is a lifelong nonsmoker. No history of COPD/emphysema/asthma. She does follow with Dr. Castañeda in our office. She originally had undergone a thoracentesis for moderate right-sided pleural effusion in May 2017. This was positive for metastatic breast cancer. There is also metastatic lesions throughout the skeletal. She had also undergone repeat thoracentesis just on 09/22/[address] Castañeda in the outpatient setting with another 1200 mL's of fluid removed. The patient has had complaints of shortness of breath for approximately 6 months now. She does have a history of anxiety. She breathes quite shallow and rapidly. Her daughters have noticed this for several months and it has not changed following the thoracentesis at all. She has been given anxiolytics in the past which have not really been proven to help with her tachypnea. She presented here to the emergency room for continued complaints of shortness of breath. Her chest x -ray as compared to the one on September 22 did reveal continued bilateral pleural effusions right greater than left. There is also increased fluid volume overload. She was found to be in atrial fibrillation with a rapid ventricular response initially requiring a Cardizem drip. Echocardiogram reveals mildly impaired left ventricular systolic function with ejection fraction between 45 and 50%. There is severe tricuspid regurgitation and moderate pulmonary hypertension with an RVSP of 66.38 mmHg. The patient is seen today in consultation on the selective care unit. She is currently sitting up in a chair at the bedside. She is awake and alert in no acute distress. She continues with rapid shallow respirations in the high 20s. She is maintaining good O2 saturations in the high 90s on just 2 L/m per nasal cannula. She's been afebrile. Slightly tachycardic. White count 6.6. Hemoglobin 13.6. Creatinine 0.60. Bicarb 20. Influenza screen negative. ProBNP 3090. Troponins negative 2. She has been initiated on Lasix 40 mg IV push every 8 hours and Aldactone. Continued on bronchodilators. On 09/25/2017 patient seen in follow-up. No significant change on the chest x- ray today compared to previous exams, patient remains on IV diuretics with Lasix at 40 mg every 8 hours. Remains tachypneic, but reports less dyspnea today, clinically improving. Heart rate is still tachycardic up to 112 BPM, patient remains in atrial fibrillation, she is afebrile, hemodynamically stable , on 2 L per nasal cannula her pulse ox is 96%. Today's proBNP is 2620. She is in negative to 283 mL fluid balance over the last 24 hours. Today's lab work has been reviewed, and shows no evidence of leukocytosis, serum sodium is 133, potassium is 4.6, BUN is 28, and creatinine is 0.70. Denies any chest pain. Continue current plan of treatment, code status was discussed with the patient and the patient wishes no heroic measures, no life support in case her condition deteriorates. This was discussed in the presence of her 2 daughters. Patient's long-term prognosis is poor in view of metastatic malignancy, her home abilities, advanced age. We'll continue to follow, we may consider consulting CT surgery for placement of Pleurx catheter in the event right pleural fluid reaccumulates fast despite conservative measures. Objective - Vital Signs Vital signs: Vital Signs Temp 97.3 F L 09/25/17 08:00 Pulse 112 H 09/25/17 12:00 Resp 18 09/25/17 12:00 BP 104/55 09/25/17 12:00 Pulse Ox 96 09/25/17 12:00 Intake & Output 09/24/17 09/25/17 09/25/17 18:59 06:59 18:59 Intake Total 560 50 417 Output Total 600 700 Balance 560 -550 -283 Weight 53 kg 56.1 kg Intake: IV 80 Sodium Chloride 0.9% 1, 80 000 ml @ 100 mls/hr IV . Q10H STA Rx#:[id number] Oral 480 50 417 Output: Urine 600 700 Other: Voiding Method Bedside Commode # Voids 3 1 2 # Bowel Movements 1 - Exam - Constitutional General appearance: no acute distress, thin - EENT Eyes: PERRLA ENT: hard of hearing, normal oropharynx Ears: bilateral: normal - Neck Neck: normal ROM Carotids: bilateral: upstroke normal Thyroid: bilateral: normal size - Respiratory Respiratory: right: diminished, dullness, bilateral: rales, respirations are rapid and shallow, but patient overall reports some improvement in her dyspnea - Cardiovascular Rhythm: irregularly irregular Heart sounds: normal: S1, S2 - Gastrointestinal General gastrointestinal: normal bowel sounds, soft - Integumentary Integumentary: decreased turgor - Neurologic Neurologic: CNII-XII intact - Musculoskeletal Musculoskeletal: generalized weakness - Psychiatric Psychiatric: A&O x's 3, appropriate affect, intact judgment & insight - Labs CBC & Chem 7: 09/25/17 05:20 18 05:20 Labs: Abnormal Lab Results - Last 24 Hours (Table) 09/25/17 09/25/17 Range/Units 05:20 05:20 RBC 3.79 L (3.80-5.40) m/uL MCV 102.9 H (80.0-100.0) fL RDW 16.5 H (11.5-15.5) % Lymphocytes # 0.7 L (1.0-4.8) k/uL Sodium 133 L (137-145) mmol/L BUN 28 H (7-17) mg/dL Assessment and Plan Plan: Assessment: #1 Acute hypoxic respiratory failure secondary to an acute exacerbation of systolic congestive heart failure and fluid volume overload. #2 Acute on chronic atrial fibrillation with a rapid ventricular response initially requiring Cardizem drip. Anticoagulated with Eliquis. #3 Severe tricuspid regurgitation with moderate pulmonary hypertension. #4 Recurrent bilateral pleural effusions right greater than left. Status post right-sided thoracentesis initially in May 2017 positive for metastatic breast cancer. Second right-sided thoracentesis performed 09/22/2017 in the outpatient setting. 1200 mL's removed. #5 Metastatic breast cancer with lung and skeletal involvement. Currently on Ibrance. #6 Tachypnea secondary to above. #7 Hypertension. #8 Hyperlipidemia. #9 Hypothyroidism. Plan: Continue current plan of treatment, continue IV diuretics, patient reports slight improvement in her dyspnea, although remains tachypneic. She is wearing her oxygen intermittently, on 2 L per nasal cannula her pulse ox is 96%. Chest x-ray shows stable findings of pulmonary edema and current's of right-sided pleural effusion. We'll consider consulting CT surgery for placement of Pleurx catheter if her symptoms worsen or if there is increasing pleural fluid despite the conservative treatment. CODE STATUS was discussed in the presence of her 2 daughters with the patient, and the patient expressed her wish for no heroic measures or life support in the event her condition deteriorates. We will continue with supportive treatment. We'll continue to follow I performed a history & physical examination of the patient and discussed their management with my nurse practitioner, Lisa Ayers. I reviewed the nurse practitioner's note and agree with the documented findings and plan of care. Lung sounds are positive for diminished breath sounds at bilateral bases with scattered rales. The findings and the impression was discussed with the patient. I attest to the documentation by the nurse practitioner. Time with Patient: Less than 30
--- NOTE | 2017-09-25 14:46 | P.PN ---
Subjective Progress Note Date: 09/25/17 This is a 81-year-old female with history of chronic atrial fibrillation and recently found metastatic breast disease with metastases to the lungs and also recurrent pleural effusion, who was admitted to the hospital with increasing shortness of breath. Patient just had a pleural tap prior to admission. Her chest x-ray showed diffuse infiltrates consistent with either CHF or diffuse interstitial disease. Patient was treated with IV Lasix and Aldactone. Patient is diuresing reasonably well. If she feels slightly better. She continues to be lower [place] fibrillation with moderately rapid ventricular response. We'll increase the dose of the metoprolol to 25 mg by mouth 3 times a day. I' m going to add Lanoxin 0.125 mg once daily after a couple of doses of IV . Long -term prognosis is guarded. Objective - Vital Signs Vital signs: Vital Signs Temp 97.3 F L 09/25/17 08:00 Pulse 112 H 09/25/17 12:00 Resp 18 09/25/17 12:00 BP 104/55 09/25/17 12:00 Pulse Ox 96 09/25/17 12:00 Intake & Output 09/24/17 09/25/17 09/25/17 18:59 06:59 18:59 Intake Total 560 50 777 Output Total 600 700 Balance 560 -550 77 Weight 53 kg 56.1 kg Intake: IV 80 Sodium Chloride 0.9% 1, 80 000 ml @ 100 mls/hr IV . Q10H STA Rx#:[id number] Oral 480 50 777 Output: Urine 600 700 Other: Voiding Method Bedside Commode # Voids 3 1 2 # Bowel Movements 1 - Exam GENERAL EXAM: Patient is alert and oriented in mild to moderate respiratory distress. HEENT: Normocephalic. Normal reaction of pupils, equal size, normal range of extraocular motion. No erythema or exudates in the throat. NECK: No masses, no nuchal rigidity. CHEST: No chest wall deformity. LUNGS: Diminished breath sounds HEART: S1 and S2 normal with no audible mumurs or gallops. Regular rhythm, femorals equal on both sides.. ABDOMEN: No hepatosplenomegaly, normal bowel sounds, no guarding or rigidity. SKIN: No rashes CENTRAL NERVOUS SYSTEM: No focal deficits. EXTREMITIES: No cyanosis, clubbing or edema. - Labs CBC & Chem 7: 09/25/17 05:20 09/25/17 05:20 Labs: Abnormal Lab Results - Last 24 Hours (Table) 09/25/17 09/25/17 Range/Units 05:20 05:20 RBC 3.79 L (3.80-5.40) m/uL MCV 102.9 H (80.0-100.0) fL RDW 16.5 H (11.5-15.5) % Lymphocytes # 0.7 L (1.0-4.8) k/uL Sodium 133 L (137-145) mmol/L BUN 28 H (7-17) mg/dL Assessment and Plan (1) Metastatic breast cancer Current Visit: Yes Status: Acute Code(s): C50.919 - MALIGNANT NEOPLASM OF UNSP SITE OF UNSPECIFIED FEMALE BREAST SNOMED Code(s): 760985829 (2) Atrial fibrillation with RVR Current Visit: Yes Status: Acute Code(s): I48.91 - UNSPECIFIED ATRIAL FIBRILLATION SNOMED Code(s): 540260997668452 (3) CHF (congestive heart failure) Current Visit: No Status: Acute Code(s): I50.9 - HEART FAILURE, UNSPECIFIED SNOMED Code(s): 19681740 Plan: Patient showed some improvement but still complaining of shortness of breath. I 'm going to add Lanoxin. Continue current medical therapy. Follow electrolytes
[2017-09-25] MEDS: PALBOCICLIB 100 MG PO SCH (16:39)
[2017-09-25] MEDS: DIGOXIN 250 MCG/ML 2 ML AMP IVP SCH ×2 (16:45→20:34)
--- NOTE | 2017-09-25 17:06 | P.PN ---
Subjective Progress Note Date: 09/25/17 Principal diagnosis: Acute on chronic systolic CHF exacerbation Atrial fibrillation with RVR Metastatic breast cancer Pt feels much better. Objective - Vital Signs Vital signs: Vital Signs Temp 97.3 F L 09/25/17 08:00 Pulse 104 H 09/25/17 16:29 Resp 24 09/25/17 16:00 BP 96/56 09/25/17 16:00 Pulse Ox 94 L 09/25/17 16:00 Intake & Output 09/24/17 09/25/17 09/25/17 18:59 06:59 18:59 Intake Total 560 50 777 Output Total 600 700 Balance 560 -550 77 Weight 53 kg 56.1 kg Intake: IV 80 Sodium Chloride 0.9% 1, 80 000 ml @ 100 mls/hr IV . Q10H STA Rx#:[id number] Oral 480 50 777 Output: Urine 600 700 Other: Voiding Method Bedside Commode # Voids 3 1 2 # Bowel Movements 1 - Exam Constitutional: No acute distress. HEENT: No scleral icterus. Does have conjunctival pallor. Mucosa moist. Neck: Neck supple. Lymph: No neck/cervical LAD. Lungs: CTA-B without wheezing or rhonchi. Heart: RRR without murmurs. 1-2+ bilateral LE pitting edema. Abdomen: Soft, nontender, nondistended, with positive bowel sounds. MSK: 4/4 strength in all 4 extremities. Neuro: Alert and oriented x 3. Skin: No jaundice or rash. Psych: Appropriate affect. - Labs CBC & Chem 7: 09/25/17 05:20 09/25/17 05:20 Labs: Abnormal Lab Results - Last 24 Hours (Table) 09/25/17 09/25/17 Range/Units 05:20 05:20 RBC 3.79 L (3.80-5.40) m/uL MCV 102.9 H (80.0-100.0) fL RDW 16.5 H (11.5-15.5) % Lymphocytes # 0.7 L (1.0-4.8) k/uL Sodium 133 L (137-145) mmol/L BUN 28 H (7-17) mg/dL Assessment and Plan Assessment: Metastatic breast cancer Acute on chronic systolic decompensated heart failure Atrial fibrillation with RVR Plan: Ms. Fuller is a very pleasant 81 yo female with metastatic breast cancer on ibrance and faslodex, with decrease in her tumor markers, here for SOB due to fluid overload from CHF exacerbation and atrial fibrillation with RVR. Rate better controlled now and being diuresed. Feeling better. Agree with continued diuresis. Pt will continue her cancer therapy as scheduled once discharged. She is due for faslodex on 09/28/17; will consider giving IPD if necessary to avoid delays in her receiving her therapy. Discussed with pt and her family at bedside and they are agreeable to the plan. All questions were answered.
--- NOTE | 2017-09-25 17:44 | PN ---
PROGRESS NOTE DATE OF SERVICE: 09/25/2017 PRESENTING COMPLAINT: Short of breath. INTERVAL HISTORY: This patient with metastatic breast cancer and metastatic pleural effusion, presents with acute CHF exacerbation. Breathing is somewhat better, but still gets short of breath. Heart rate jumps up to 120s. Two daughters at the bedside. The patient has got atrial flutter fibrillation. The patient tolerating some diet. REVIEW OF SYSTEMS: Review of systems done for constitutional, cardiovascular, GI, pulmonary; relevant findings as above. CURRENT MEDICATIONS: Current mediations are reviewed that include IV Lasix 40 mg q.8. PHYSICAL EXAMINATION: On examination, temperature 97.3, heart rate up to 120s, respiration 22, blood pressure 126/80, pulse ox 96% on 2 L. GENERAL APPEARANCE: Sitting up on a chair. Some shortness of breath at rest. EYES: Pupils equal. Conjunctivae normal. HENT: External appearance of the nose and ears normal. Oral cavity normal. NECK: JVD unable to assess. Mass not palpable. RESPIRATORY: Effort increased. LUNGS: Decreased breath sounds. Prolonged expiration. Some crackles CARDIOVASCULAR: Heart sounds irregular. Minimal edema. ABDOMEN: Soft, nontender. Liver and spleen not palpable. PSYCHIATRY: Alert and oriented x3. Mood and affect some anxiety is present. INVESTIGATION: Chest x-ray still shows some fluid overload and some patchy infiltrates. White count 6.1, hemoglobin 12.7. Potassium 4.6, BUN 28, creatinine 0.70. ProBNP . ASSESSMENT: 1. Acute congestive heart failure exacerbation from systolic dysfunction, ejection fraction 45%, slow to respond. 2. Atrial flutter fibrillation with rapid ventricular rate, still in the 120s. 3. 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 Castañeda the day before admission. 4. Essential hypertension. 5. Primary osteoarthritis multiple joints. 6. Moderate mitral regurgitation, severe tricuspid regurgitation, nonrheumatic. 7. Secondary pulmonary hypertension due to congestive heart failure, chronic obstructive pulmonary disease. 8. Rule out over replacement with Synthroid given a rather hefty dose for this rather small frame lady. PLAN: At this point, we will check patient's free T4, TSH in the morning. Increase IV Lasix to 60 mg q.8 and see if there is any further benefit. Overall prognosis guarded given patient's disease process and comorbidities. Care was discussed with Dr. Dejesus and the 2 daughters at length. MMODL / IJN: [id number] /
[2017-09-25] MEDS: FUROSEMIDE 10 MG/ML 10 ML VIAL IV SCH ×2 (19:04→23:54)
[2017-09-26] MEDS: VIT A,C & E-LUTEIN-MINERALS 1 EACH TAB PO SCH ×2 (06:12→16:19)
[2017-09-26] MEDS: PANTOPRAZOLE 40 MG TABLET PO SCH (06:12)
[2017-09-26] MEDS: LEVOTHYROXINE 100 MCG TAB PO SCH (06:12)
[2017-09-26 08:14] LABS: Calcium 9.2 mg/dL (8.4-10.2); Potassium 4.8 mmol/L (3.5-5.1)
[2017-09-26] MEDS: busPIRone HCl 5 MG TAB PO SCH ×2 (09:15→20:10)
[2017-09-26] MEDS: SPIRONOLACTONE 25 MG TAB PO SCH (09:15)
[2017-09-26] MEDS: METOPROLOL TARTRATE 25 MG TAB PO SCH ×3 (09:15→20:10)
[2017-09-26] MEDS: DIGOXIN 125 MCG TAB PO SCH (09:15)
[2017-09-26] MEDS: POTASSIUM CHLORIDE ER 10 MEQ TAB.ER.PRT PO SCH ×2 (09:15→20:11)
[2017-09-26] MEDS: FUROSEMIDE 10 MG/ML 10 ML VIAL IV SCH ×3 (09:16→23:07)
[2017-09-26] MEDS: MEGESTROL 400 MG/10 ML CUP PO SCH (09:16)
[2017-09-26] MEDS: APIXABAN 2.5 MG TABLET PO SCH ×2 (09:16→20:10)
[2017-09-26] MEDS: PALBOCICLIB 100 MG PO SCH (09:17)
[2017-09-26] MEDS: DRONABINOL 2.5 MG CAP PO SCH (09:21)
[2017-09-26 10:16] LABS: T4, Free (Free Thyroxine) 2.82 ng/dL (0.78-2.19)
[2017-09-26] MEDS: IPRATROPIUM-ALBUTEROL 3 ML NEB INHALATION PRN ×2 (12:30→20:56)
[2017-09-26] MEDS: LISINOPRIL 5 MG TAB PO SCH (12:38)
--- NOTE | 2017-09-26 12:39 | P.PN ---
Subjective Progress Note Date: 09/26/17 Principal diagnosis: Acute hypoxic respiratory failure due to acute exacerbation of systolic congestive heart failure and fluid volume overload This is a very pleasant 81-year-old female patient who follows with Dr. Beltrán as her primary care physician. She has a history of atrial fibrillation anticoagulated with Eliquis, congestive heart failure, CVA/TIA, hypertension, hypothyroidism, osteoarthritis. She also has a history of metastatic breast cancer and is currently on Ibrance. She is a lifelong nonsmoker. No history of COPD/emphysema/asthma. She does follow with Dr. Castañeda in our office. She originally had undergone a thoracentesis for moderate right-sided pleural effusion in May 2017. This was positive for metastatic breast cancer. There is also metastatic lesions throughout the skeletal. She had also undergone repeat thoracentesis just on 09/22/[address] Castañeda in the outpatient setting with another 1200 mL's of fluid removed. The patient has had complaints of shortness of breath for approximately 6 months now. She does have a history of anxiety. She breathes quite shallow and rapidly. Her daughters have noticed this for several months and it has not changed following the thoracentesis at all. She has been given anxiolytics in the past which have not really been proven to help with her tachypnea. She presented here to the emergency room for continued complaints of shortness of breath. Her chest x -ray as compared to the one on September 22 did reveal continued bilateral pleural effusions right greater than left. There is also increased fluid volume overload. She was found to be in atrial fibrillation with a rapid ventricular response initially requiring a Cardizem drip. Echocardiogram reveals mildly impaired left ventricular systolic function with ejection fraction between 45 and 50%. There is severe tricuspid regurgitation and moderate pulmonary hypertension with an RVSP of 66.38 mmHg. The patient is seen today in consultation on the selective care unit. She is currently sitting up in a chair at the bedside. She is awake and alert in no acute distress. She continues with rapid shallow respirations in the high 20s. She is maintaining good O2 saturations in the high 90s on just 2 L/m per nasal cannula. She's been afebrile. Slightly tachycardic. White count 6.6. Hemoglobin 13.6. Creatinine 0.60. Bicarb 20. Influenza screen negative. ProBNP 3090. Troponins negative 2. She has been initiated on Lasix 40 mg IV push every 8 hours and Aldactone. Continued on bronchodilators. On 09/25/2017 patient seen in follow-up. No significant change on the chest x- ray today compared to previous exams, patient remains on IV diuretics with Lasix at 40 mg every 8 hours. Remains tachypneic, but reports less dyspnea today, clinically improving. Heart rate is still tachycardic up to 112 BPM, patient remains in atrial fibrillation, she is afebrile, hemodynamically stable , on 2 L per nasal cannula her pulse ox is 96%. Today's proBNP is 2620. She is in negative to 283 mL fluid balance over the last 24 hours. Today's lab work has been reviewed, and shows no evidence of leukocytosis, serum sodium is 133, potassium is 4.6, BUN is 28, and creatinine is 0.70. Denies any chest pain. Continue current plan of treatment, code status was discussed with the patient and the patient wishes no heroic measures, no life support in case her condition deteriorates. This was discussed in the presence of her 2 daughters. Patient's long-term prognosis is poor in view of metastatic malignancy, her home abilities, advanced age. We'll continue to follow, we may consider consulting CT surgery for placement of Pleurx catheter in the event right pleural fluid reaccumulates fast despite conservative measures. Patient was reevaluated today on 09/26/2017, doing much better clinically, breathing a lot easier, remains on diuretics, less tachypnea, remains in atrial fibrillation, but controlled rate. O2 saturation is in the 96% on 2 L nasal cannula. No chest x-ray was done today, however I plan to repeat her chest x- ray tomorrow morning. Objective - Vital Signs Vital signs: Vital Signs Temp 96.9 F L 09/26/17 08:00 Pulse 100 09/26/17 12:30 Resp 24 09/26/17 08:00 BP 106/62 09/26/17 08:00 Pulse Ox 91 L 09/26/17 08:00 Intake & Output 09/25/17 09/26/17 09/26/17 18:59 06:59 18:59 Intake Total 1013 360 Output Total 700 1250 Balance 313 -1250 360 Weight 56.5 kg Intake: Oral 1013 360 Output: Urine 700 1250 Other: Voiding Method Bedside Commode # Voids 2 1 - Exam - Constitutional General appearance: no acute distress, thin - EENT Eyes: PERRLA ENT: hard of hearing, normal oropharynx Ears: bilateral: normal - Neck Neck: normal ROM Carotids: bilateral: upstroke normal Thyroid: bilateral: normal size - Respiratory Respiratory: right: diminished, dullness, bilateral: rales - Cardiovascular Rhythm: irregularly irregular Heart sounds: normal: S1, S2 - Gastrointestinal General gastrointestinal: normal bowel sounds, soft - Integumentary Integumentary: decreased turgor - Neurologic Neurologic: CNII-XII intact - Musculoskeletal Musculoskeletal: generalized weakness - Psychiatric Psychiatric: A&O x's 3, appropriate affect, intact judgment & insight - Labs CBC & Chem 7: 09/25/17 05:20 09/26/17 05:57 Labs: Abnormal Lab Results - Last 24 Hours (Table) 09/25/17 09/26/17 Range/Units 05:20 05:57 Sodium 133 L 131 L (137-145) mmol/L Chloride 93 L (98-107) mmol/L BUN 28 H 36 H (7-17) mg/dL TSH 0.063 L (0.465-4.680) mIU/L Free T4 2.82 H (0.78-2.19) ng/dL Assessment and Plan Assessment: #1 Acute hypoxic respiratory failure secondary to an acute exacerbation of systolic congestive heart failure and fluid volume overload. #2 Acute on chronic atrial fibrillation with a rapid ventricular response initially requiring Cardizem drip. Anticoagulated with Eliquis. #3 Severe tricuspid regurgitation with moderate pulmonary hypertension. #4 Recurrent bilateral pleural effusions right greater than left. Status post right-sided thoracentesis initially in May 2017 positive for metastatic breast cancer. Second right-sided thoracentesis performed 09/22/2017 in the outpatient setting. 1200 mL's removed. #5 Metastatic breast cancer with lung and skeletal involvement. Currently on Ibrance. #6 Tachypnea secondary to above. #7 Hypertension. #8 Hyperlipidemia. #9 Hypothyroidism. Recommendation: Continue present treatment plan including diuretics, continue Aldactone and Lasix, follow-up chest x-ray in a.m., continue to monitor renal profile. Continue anticoagulation therapy, based on the follow-up chest x-ray findings, further recommendations to follow. Time with Patient: Less than 30
--- NOTE | 2017-09-26 15:35 | P.PN ---
Subjective Progress Note Date: 09/26/17 This is a 81-year-old female with history of chronic atrial fibrillation and recently found metastatic breast disease with metastases to the lungs and also recurrent pleural effusion, who was admitted to the hospital with increasing shortness of breath. Patient just had a pleural tap prior to admission. Her chest x-ray showed diffuse infiltrates consistent with either CHF or diffuse interstitial disease. Patient was treated with IV Lasix and Aldactone. Patient is diuresing reasonably well. If she feels slightly better. She continues to be cachil dehe fibrillation with moderately rapid ventricular response. We'll increase the dose of the metoprolol to 25 mg by mouth 3 times a day. I' m going to add Lanoxin 0.125 mg once daily after a couple of doses of IV . Long -term prognosis is guarded. 09/26/2017: Patient is feeling slightly better. He seemed to be less short of breath. Heart rate is better controlled. She is on Lanoxin along with diuretics. We'll get another chest x-ray tomorrow. Overall her prognosis is still poor. Some of the shortness of breath is related to metastatic disease and interstitial disease. Family was asking that whenever she gets the cancer medication, patient is getting tachycardic and short of breath. They're wondering if he can stop the medication. I'll discuss with oncologist and primary care physician before discontinuing the medication Objective - Vital Signs Vital signs: Vital Signs Temp 96.9 F L 09/26/17 08:00 Pulse 100 09/26/17 12:41 Resp 22 09/26/17 12:00 BP 108/70 09/26/17 12:00 Pulse Ox 94 L 09/26/17 12:00 Intake & Output 09/25/17 09/26/17 09/26/17 18:59 06:59 18:59 Intake Total 1013 360 Output Total 700 1250 Balance 313 -1250 360 Weight 56.5 kg Intake: Oral 1013 360 Output: Urine 700 1250 Other: Voiding Method Bedside Commode # Voids 2 1 - Exam GENERAL EXAM: Patient is alert and oriented in mild to moderate respiratory distress. HEENT: Normocephalic. Normal reaction of pupils, equal size, normal range of extraocular motion. No erythema or exudates in the throat. NECK: No masses, no nuchal rigidity. CHEST: No chest wall deformity. LUNGS: Diminished breath sounds HEART: S1 and S2 normal with no audible mumurs or gallops. Regular rhythm, femorals equal on both sides.. ABDOMEN: No hepatosplenomegaly, normal bowel sounds, no guarding or rigidity. SKIN: No rashes CENTRAL NERVOUS SYSTEM: No focal deficits. EXTREMITIES: No cyanosis, clubbing or edema. - Labs CBC & Chem 7: 09/25/17 05:20 09/26/17 05:57 Labs: Abnormal Lab Results - Last 24 Hours (Table) 09/25/17 09/26/17 Range/Units 05:20 05:57 Sodium 133 L 131 L (137-145) mmol/L Chloride 93 L (98-107) mmol/L BUN 28 H 36 H (7-17) mg/dL TSH 0.063 L (0.465-4.680) mIU/L Free T4 2.82 H (0.78-2.19) ng/dL Assessment and Plan (1) Metastatic breast cancer Current Visit: Yes Status: Acute Code(s): C50.919 - MALIGNANT NEOPLASM OF UNSP SITE OF UNSPECIFIED FEMALE BREAST SNOMED Code(s): 541049527 (2) Atrial fibrillation with RVR Current Visit: Yes Status: Acute Code(s): I48.91 - UNSPECIFIED ATRIAL FIBRILLATION SNOMED Code(s): 320590430109007 (3) CHF (congestive heart failure) Current Visit: No Status: Acute Code(s): I50.9 - HEART FAILURE, UNSPECIFIED SNOMED Code(s): 79602887 Plan: Slight improvement compared to yesterday. Diuresing reasonably well. We'll continue current medical therapy
[2017-09-26] MEDS: ATORVASTATIN 40 MG TAB PO SCH (20:10)
--- NOTE | 2017-09-26 22:21 | PN ---
PROGRESS NOTE DATE OF SERVICE: 09/26/2017. PRESENTING COMPLAINT: Short of breath. INTERVAL HISTORY: This patient with metastatic breast cancer and pleural effusion presented with acute CHF exacerbation, had increased the patient's Lasix yesterday to 60 mg p.o. 3. The patient has done more diuresis, feels better. Two daughters at the bedside. The patient has been in atrial flutter fibrillation. REVIEW OF SYSTEMS: Done for constitutional, cardiovascular, GI, pulmonary; relevant findings as above. The patient's breathing is better today. CURRENT MEDICATIONS: Reviewed that include IV Lasix 60 q.8. EXAMINATION: Temperature 96.9, pulse 93, respiratory 24, blood pressure 106/62, pulse ox 91% on room air. GENERAL APPEARANCE: Lying in bed, tired-appearing, less short of breath. Eyes: Pupils equal. Conjunctivae normal. HEENT external appearance of nose and ears normal. Oral cavity normal. Neck JVD unable to assess. Mass not palpable. Respiratory effort increased. Lungs decreased breath sounds. Prolonged expiration. Less crackles. Cardiovascular. HEART: Sounds irregular. Minimal edema. ABDOMEN: Soft, nontender. Liver and spleen not palpable. Psychiatry: Alert and oriented x3. Mood and affect tired-appearing. INVESTIGATIONS: Potassium 4.8, BUN 36, creatinine 0.75. Free TSH is 0.063, T4 is 2.82. ASSESSMENT: 1. Acute congestive heart failure exacerbation from systolic dysfunction ejection fraction 45%, slowly improving. 2. Atrial flutter fibrillation/rapid ventricular rate. 3. Metastatic breast cancer include the patient is status post thoracentesis the day before admission by Dr. Castañeda. 4. Essential hypertension. 5. Primary osteoarthritis multiple joints. 6. Moderate mitral regurgitation, severe tricuspid regurgitation, nonrheumatic. 7. Secondary pulmonary hypertension due to congestive heart failure/chronic obstructive pulmonary disease. 8. Over replacement with Synthroid contributing to the patient's hyperthyroidism. PLAN: We will keep the patient on current dose of Lasix. Care was discussed with the 2 daughters. Will repeat a chest x-ray in the morning. The patient dose of Synthroid will be cut back to 150. Other medication and treatment plan is to continue. MMODL / IJN: [id number] /
[2017-09-27 06:54] LABS: Calcium 9.7 mg/dL (8.4-10.2); Potassium 5.1 mmol/L (3.5-5.1)
[2017-09-27] MEDS: PANTOPRAZOLE 40 MG TABLET PO SCH (07:07)
[2017-09-27] MEDS: VIT A,C & E-LUTEIN-MINERALS 1 EACH TAB PO SCH ×2 (07:07→17:59)
--- NOTE | 2017-09-27 08:15 | XR ---
EXAMINATION TYPE: XR chest 2V DATE OF EXAM: 09/27/2017 COMPARISON: Prior chest x-ray 09/25/2017 HISTORY: Congestive heart failure TECHNIQUE: Frontal and lateral views of the chest are obtained. FINDINGS: Pleural parenchymal changes are similar in appearance to prior exam. No evident pneumothor ax. Heart size is stable. IMPRESSION: There may be some slight interval improvement in aeration.
[2017-09-27] MEDS: busPIRone HCl 5 MG TAB PO SCH ×2 (09:31→21:04)
[2017-09-27] MEDS: FUROSEMIDE 10 MG/ML 10 ML VIAL IV SCH ×3 (09:31→23:24)
[2017-09-27] MEDS: APIXABAN 2.5 MG TABLET PO SCH ×2 (09:31→21:03)
[2017-09-27] MEDS: LISINOPRIL 5 MG TAB PO SCH (09:33)
[2017-09-27] MEDS: DIGOXIN 125 MCG TAB PO SCH (09:33)
[2017-09-27] MEDS: METOPROLOL TARTRATE 25 MG TAB PO SCH ×3 (09:33→21:04)
[2017-09-27] MEDS: MEGESTROL 400 MG/10 ML CUP PO SCH (09:33)
[2017-09-27] MEDS: POTASSIUM CHLORIDE ER 10 MEQ TAB.ER.PRT PO SCH ×2 (09:34→09:52)
[2017-09-27] MEDS: DRONABINOL 2.5 MG CAP PO SCH (09:52)
--- NOTE | 2017-09-27 12:07 | P.PN ---
Subjective Progress Note Date: 09/27/17 Principal diagnosis: CHF exacerbation, a-fib/RVR Pt is sitting up in chair, breathing is labored at rest. When asked, pt states her QOL 6/10 (0 being no QOL, 10 being best possible QOL), she feels that QOL is a little worse since starting treatment for breast cancer, her breathing is not much improved since admit, she is eating a little, no nausea, she has had a BM. Objective - Vital Signs Vital signs: Vital Signs Temp 97.0 F L 09/27/17 09:31 Pulse 105 H 09/27/17 09:31 Resp 24 09/27/17 09:31 BP 101/65 09/27/17 09:31 Pulse Ox 94 L 09/27/17 09:31 Intake & Output 09/26/17 09/27/17 09/27/17 18:59 06:59 18:59 Intake Total 1080 240 240 Output Total 600 400 Balance 480 -160 240 Weight 56.5 kg Intake: Oral 1080 240 240 Output: Urine 600 400 Other: Voiding Method Bedside Commode Toilet Bedside Commode # Voids 3 - Constitutional General appearance: Present: average body habitus, cooperative, mild distress - Respiratory Respiratory: bilateral: CTA, negative: prolonged expiration - Cardiovascular Rhythm: irregularly irregular Heart sounds: normal: S1, S2 - Peripheral edema leg Peripheral Edema: bilateral: Trace - Gastrointestinal General gastrointestinal: Present: normal bowel sounds, soft - Neurologic Neurologic: Present: CNII-XII intact - Musculoskeletal Musculoskeletal: Present: generalized weakness - Psychiatric Psychiatric: Present: A&O x's 3, appropriate affect, intact judgment & insight - Labs CBC & Chem 7: 09/25/17 05:20 09/27/17 05:49 Labs: Abnormal Lab Results - Last 24 Hours (Table) 09/27/17 Range/Units 05:49 Sodium 128 L (137-145) mmol/L Chloride 89 L (98-107) mmol/L BUN 42 H (7-17) mg/dL Assessment and Plan (1) Metastatic breast cancer Narrative/Plan: Had a lengthy discussion with patient's daughter, daughter has many doubts about patient being on treatment, patient does not have same doubts. For compromise, patient will hold Ibrance and faslodex injections until her appointment on the . If patient symptoms improve substantially then patient can consider dose reduction or she could choose discontinuation of therapy altogether. Did reinforce patient's good response to treatment so far, significant reduction in tumor markers. We discussed that patient did have malignant pleural effusion in June. Recurrence of pleural effusion took nearly 3 months and there are other co-morbidities to consider including congestive heart failure. patient and daughter are agreeable to hold treatment and reevaluate patient's condition next week, they will make further decisions regarding treatment at that time. Patients follow-up appointment is documented. Rescheduling of Faslodex has been done, [place] will have to be contacted for the time. Current Visit: Yes Status: Acute Priority: High Code(s): C50.919 - MALIGNANT NEOPLASM OF UNSP SITE OF UNSPECIFIED FEMALE BREAST SNOMED Code(s): 415433566
[2017-09-27] MEDS: SPIRONOLACTONE 25 MG TAB PO SCH (13:38)
[2017-09-27] MEDS: PALBOCICLIB 100 MG PO SCH (13:39)
--- NOTE | 2017-09-27 14:09 | P.PN ---
Subjective Progress Note Date: 09/27/17 Principal diagnosis: Acute hypoxic respiratory failure secondary to an acute exacerbation of systolic CHF and fluid volume overload This is a very pleasant 81-year-old female patient who follows with Dr. Beltrán as her primary care physician. She has a history of atrial fibrillation anticoagulated with Eliquis, congestive heart failure, CVA/TIA, hypertension, hypothyroidism, osteoarthritis. She also has a history of metastatic breast cancer and is currently on Ibrance. She is a lifelong nonsmoker. No history of COPD/emphysema/asthma. She does follow with Dr. Castañeda in our office. She originally had undergone a thoracentesis for moderate right-sided pleural effusion in May 2017. This was positive for metastatic breast cancer. There is also metastatic lesions throughout the skeletal. She had also undergone repeat thoracentesis just on 09/22/[address] Castañeda in the outpatient setting with another 1200 mL's of fluid removed. The patient has had complaints of shortness of breath for approximately 6 months now. She does have a history of anxiety. She breathes quite shallow and rapidly. Her daughters have noticed this for several months and it has not changed following the thoracentesis at all. She has been given anxiolytics in the past which have not really been proven to help with her tachypnea. She presented here to the emergency room for continued complaints of shortness of breath. Her chest x -ray as compared to the one on September 22 did reveal continued bilateral pleural effusions right greater than left. There is also increased fluid volume overload. She was found to be in atrial fibrillation with a rapid ventricular response initially requiring a Cardizem drip. Echocardiogram reveals mildly impaired left ventricular systolic function with ejection fraction between 45 and 50%. There is severe tricuspid regurgitation and moderate pulmonary hypertension with an RVSP of 66.38 mmHg. The patient is seen today in consultation on the selective care unit. She is currently sitting up in a chair at the bedside. She is awake and alert in no acute distress. She continues with rapid shallow respirations in the high 20s. She is maintaining good O2 saturations in the high 90s on just 2 L/m per nasal cannula. She's been afebrile. Slightly tachycardic. White count 6.6. Hemoglobin 13.6. Creatinine 0.60. Bicarb 20. Influenza screen negative. ProBNP 3090. Troponins negative 2. She has been initiated on Lasix 40 mg IV push every 8 hours and Aldactone. Continued on bronchodilators. On 09/25/2017 patient seen in follow-up. No significant change on the chest x- ray today compared to previous exams, patient remains on IV diuretics with Lasix at 40 mg every 8 hours. Remains tachypneic, but reports less dyspnea today, clinically improving. Heart rate is still tachycardic up to 112 BPM, patient remains in atrial fibrillation, she is afebrile, hemodynamically stable , on 2 L per nasal cannula her pulse ox is 96%. Today's proBNP is 2620. She is in negative to 283 mL fluid balance over the last 24 hours. Today's lab work has been reviewed, and shows no evidence of leukocytosis, serum sodium is 133, potassium is 4.6, BUN is 28, and creatinine is 0.70. Denies any chest pain. Continue current plan of treatment, code status was discussed with the patient and the patient wishes no heroic measures, no life support in case her condition deteriorates. This was discussed in the presence of her 2 daughters. Patient's long-term prognosis is poor in view of metastatic malignancy, her home abilities, advanced age. We'll continue to follow, we may consider consulting CT surgery for placement of Pleurx catheter in the event right pleural fluid reaccumulates fast despite conservative measures. On 09/27/2017 patient seen in follow-up. Sitting up in the chair, on room air pulse ox is 94%, patient appears to be less tachypneic compared to previous exams. Appears to be less dyspneic, and she reports less shortness of breath at rest. She is afebrile, hemodynamically stable. She remains on IV diuretics with Lasix at 60 mg every 8 hours, today's chest x-ray was reviewed by Dr. Castañeda and shows slight interval improvement in aeration bilaterally. Clinically patient is improving, although her long-term prognosis is quite poor in view of metastatic malignancy, and poor left ventricular systolic function, chronic A. fib, and multiple other comorbidities. Patient may still need placement of Pleurx catheter if fluid re-accumulates. This was discussed with the patient and the family, who understand and agree with the plan. Objective - Vital Signs Vital signs: Vital Signs Temp 97.0 F L 09/27/17 09:31 Pulse 105 H 09/27/17 09:31 Resp 24 05/21/18 09:31 BP 101/65 09/27/17 09:31 Pulse Ox 94 L 09/27/17 09:31 Intake & Output 09/26/17 09/27/17 09/27/17 18:59 06:59 18:59 Intake Total 1080 240 600 Output Total 600 400 Balance 480 -160 600 Weight 56.5 kg Intake: Oral 1080 240 600 Output: Urine 600 400 Other: Voiding Method Bedside Commode Toilet Bedside Commode # Voids 3 - Exam - Constitutional General appearance: no acute distress, thin - EENT Eyes: PERRLA ENT: hard of hearing, normal oropharynx Ears: bilateral: normal - Neck Neck: normal ROM Carotids: bilateral: upstroke normal Thyroid: bilateral: normal size - Respiratory Respiratory: right: diminished, dullness, bilateral: rales, but patient overall reports some improvement in her dyspnea - Cardiovascular Rhythm: irregularly irregular Heart sounds: normal: S1, S2 - Gastrointestinal General gastrointestinal: normal bowel sounds, soft - Integumentary Integumentary: decreased turgor - Neurologic Neurologic: CNII-XII intact - Musculoskeletal Musculoskeletal: generalized weakness - Psychiatric Psychiatric: A&O x's 3, appropriate affect, intact judgment & insight - Labs CBC & Chem 7: 09/25/17 05:20 09/27/17 05:49 Labs: Abnormal Lab Results - Last 24 Hours (Table) 09/27/17 Range/Units 05:49 Sodium 128 L (137-145) mmol/L Chloride 89 L (98-107) mmol/L BUN 42 H (7-17) mg/dL Assessment and Plan Plan: Assessment: #1 Acute hypoxic respiratory failure secondary to an acute exacerbation of systolic congestive heart failure and fluid volume overload. #2 Acute on chronic atrial fibrillation with a rapid ventricular response initially requiring Cardizem drip. Anticoagulated with Eliquis. #3 Severe tricuspid regurgitation with moderate pulmonary hypertension. #4 Recurrent bilateral pleural effusions right greater than left. Status post right-sided thoracentesis initially in May 2017 positive for metastatic breast cancer. Second right-sided thoracentesis performed 09/22/2017 in the outpatient setting. 1200 mL's removed. #5 Metastatic breast cancer with lung and skeletal involvement. Currently on Ibrance. #6 Tachypnea secondary to above. #7 Hypertension. #8 Hyperlipidemia. #9 Hypothyroidism. Plan: Continue IV diuresis, chest x-ray was reviewed by Dr. Castañeda and shows improvement in aeration, placement of the Pleurx catheter for recurrence of pleural effusion may still be needed to his reaccumulation of pleural fluid. She is now a DO NOT RESUSCITATE. Long-term prognosis is poor. Clinically patient is breathing easier. She may potentially be considered for discharge in the next 24 hours assuming her condition remains stable. I performed a history & physical examination of the patient and discussed their management with my nurse practitioner, Lisa Ayers. I reviewed the nurse practitioner's note and agree with the documented findings and plan of care. Lung sounds are positive for diminished breath sounds at bilateral bases with scattered rales. The findings and the impression was discussed with the patient. I attest to the documentation by the nurse practitioner. Time with Patient: Less than 30
--- NOTE | 2017-09-27 14:12 | P.PN ---
Subjective Progress Note Date: 09/27/17 This is an 81-year-old female with history of chronic atrial fibrillation, recently found to have metastatic breast disease with metastases to the lungs and associated pleural effusion. She was admitted to the hospital with symptoms of progressively worsening shortness of breath, just prior to her admission here patient did have a pleural tap. X-ray on admission here did reveal some diffuse infiltrates consistent with either CHF or diffuse interstitial disease. Patient was initiated on IV Lasix and Aldactone and a diuresed well. She continued to diurese well through the night last night although this morning states that she doesn't feel her breathing is significantly improved. Chest x-ray which was repeated today does show improvement in heart failure. Sodium 128, down from 137 on admission, potassium 5.1, BUN 42 and creatinine 0.8. Patient is currently in atrial fibrillation with a heart rate of 100. Patient is currently on potassium 10 mEq twice a day which we will discontinue. Objective - Vital Signs Vital signs: Vital Signs Temp 97.0 F L 09/27/17 09:31 Pulse 105 H 09/27/17 09:31 Resp 24 09/27/17 09:31 BP 101/65 09/27/17 09:31 Pulse Ox 94 L 09/27/17 09:31 Intake & Output 09/26/17 09/27/17 09/27/17 18:59 06:59 18:59 Intake Total 1080 240 600 Output Total 600 400 Balance 480 -160 600 Weight 56.5 kg Intake: Oral 1080 240 600 Output: Urine 600 400 Other: Voiding Method Bedside Commode Toilet Bedside Commode # Voids 3 - Exam PHYSICAL EXAMINATION: HEENT: Head is atraumatic, normocephalic. Pupils equal, round. Neck is supple. There is no elevated jugular venous pressure. HEART EXAMINATION: Heart S1, S2 normal. No murmur or gallop heard. CHEST EXAMINATION: Lungs reveal diminished breath sounds bilaterally. ABDOMEN: Soft, nontender. Bowel sounds are heard. No organomegaly noted. EXTREMITIES: 2+ peripheral pulses with no evidence of peripheral edema and no calf tenderness noted. NEUROLOGIC patient is awake, alert and oriented -3. . - Labs CBC & Chem 7: 09/25/17 05:20 09/27/17 05:49 Labs: Abnormal Lab Results - Last 24 Hours (Table) 09/27/17 Range/Units 05:49 Sodium 128 L (137-145) mmol/L Chloride 89 L (98-107) mmol/L BUN 42 H (7-17) mg/dL Assessment and Plan Plan: Assessment and plan #1 acute hypoxic respiratory failure secondary to systolic congestive heart failure acute on chronic. #2 metastatic breast cancer with lung and skeletal involvement #3 chronic persistent atrial fibrillation, on Eliquis for anticoagulation #4 recurrent bilateral effusions #5 hypothyroidism #6 hypertension #7 hyperlipidemia Plan We will continue to await results of echocardiogram with Doppler study, continue current dose of IV Lasix., Monitor sodium level. We will discontinue the potassium. DNP note has been reviewed, I agree with a documented findings and plan of care. Patient was seen and examined.
--- NOTE | 2017-09-27 16:30 | PN ---
PROGRESS NOTE DATE OF SERVICE: 09/27/2017 PRESENTING COMPLAINT: Short of breath. INTERVAL HISTORY: This is a patient with metastatic breast cancer with pleural effusion, status post thoracentesis before coming; presented with acute CHF exacerbation. Patient is on IV Lasix. Continues to diurese. Breathing continues to get better. Patient did walk a bit. Patient has also been in atrial flutter/fibrillation, now rate controlled. Daughter is at the bedside. REVIEW OF SYSTEMS: Done for constitutional, cardiovascular, GI, pulmonary; relevant findings as above. CURRENT MEDICATIONS: Reviewed. They include IV Lasix 60 q.8, Lopressor 25 mg p.o. t.i.d. PHYSICAL EXAMINATION: Temperature 97, pulse 105, respiration 24, blood pressure 101/65, pulse ox 94% on room air. GENERAL APPEARANCE: Lying in bed. Awake. EYES: Pupils equal. Conjunctivae normal. HEENT: External appearance of nose and ears normal. Oral cavity normal. NECK: JVD not raised. Mass not palpable. RESPIRATORY: Effort increased. LUNGS: Improved air entry. ABDOMEN: Soft, nontender. Liver and spleen not palpable. PSYCHIATRY: Alert and oriented x3. Mood and affect slightly anxious-appearing. INVESTIGATIONS: Potassium 5.1, BUN 42, creatinine 0.80. Chest x-ray shows venous prominence. ASSESSMENT: 1. Acute congestive heart failure exacerbation from systolic dysfunction, ejection fraction 45%, slowly improving. 2. Atrial flutter/fibrillation with rapid ventricular rate, somewhat better. 3. Metastatic breast cancer, status post thoracentesis the day before admission by Dr. Castañeda. 4. Essential hypertension. 5. Primary osteoarthritis in multiple joints. 6. Moderate mitral regurgitation, severe tricuspid regurgitation, non-rheumatic. 7. Secondary pulmonary hypertension due to congestive heart failure, chronic obstructive pulmonary disease. 8. Overreplacement with Synthroid. Patient's dose of Synthroid has been cut back. PLAN: Care was discussed with the daughter. Prognosis remains guarded. Hopefully with cutting back the Synthroid, the heart rate should be better controlled. Keep on IV Lasix. Await further input from Cardiology. Prognosis is guarded. MMODL / IJN: [id number] /
[2017-09-27] MEDS: IPRATROPIUM-ALBUTEROL 3 ML NEB INHALATION PRN (20:07)
[2017-09-28 00:23] VITALS: TEMP 97
[2017-09-28] MEDS: VIT A,C & E-LUTEIN-MINERALS 1 EACH TAB PO SCH (06:18)
[2017-09-28] MEDS: PANTOPRAZOLE 40 MG TABLET PO SCH (06:19)
[2017-09-28] MEDS ORDERED: LEVOTHYROXINE 75 MCG TAB PO SCH (06:30)
[2017-09-28 07:33] LABS: Calcium 9.5 mg/dL (8.4-10.2); Potassium 4.9 mmol/L (3.5-5.1)
[2017-09-28] MEDS: FUROSEMIDE 10 MG/ML 10 ML VIAL IV SCH (10:02)
[2017-09-28] MEDS: DIGOXIN 125 MCG TAB PO SCH (10:03)
[2017-09-28] MEDS: busPIRone HCl 5 MG TAB PO SCH ×2 (10:03→10:17)
[2017-09-28] MEDS: APIXABAN 2.5 MG TABLET PO SCH (10:03)
[2017-09-28] MEDS: LISINOPRIL 5 MG TAB PO SCH ×2 (10:04→10:11)
[2017-09-28] MEDS: METOPROLOL TARTRATE 25 MG TAB PO SCH ×2 (10:04→10:11)
[2017-09-28] MEDS: DRONABINOL 2.5 MG CAP PO SCH (10:04)
[2017-09-28] MEDS: MEGESTROL 400 MG/10 ML CUP PO SCH (10:04)
[2017-09-28] MEDS: SPIRONOLACTONE 25 MG TAB PO SCH (10:05)
[2017-09-28 10:20] LABS: Anisocytosis Slight; Basophils % (A) 0 %; Eosinophils # (A) 0.1 k/uL (0-0.7); Eosinophils % (A) 2 %; HCT 43.2 % (34.0-46.0); HGB 14.4 gm/dL (11.4-16.0); Lymphocytes # (A) 0.7 k/uL (1.0-4.8); Lymphocytes % (A) 10 %; MCH 34.5 pg (25.0-35.0); MCHC 33.3 g/dL (31.0-37.0); MCV 103.7 fL (80.0-100.0); Macrocytosis Moderate; Mean Platelet Volume 7.4; Monocytes # (A) 0.2 k/uL (0-1.0); Monocytes % (A) 3 %; Neutrophils # (A) 6.2 k/uL (1.3-7.7); Neutrophils % (A) 84 %; Platelet Count 383 k/uL (150-450); RBC 4.17 m/uL (3.80-5.40); RDW 16.6 % (11.5-15.5); WBC 7.4 k/uL (3.8-10.6)
--- NOTE | 2017-09-28 10:31 | XR ---
EXAMINATION TYPE: XR chest 1V portable DATE OF EXAM: 09/28/2017 COMPARISON: Prior chest x-ray 09/27/2017 HISTORY: Right pleural effusion TECHNIQUE: Single frontal view of the chest is obtained. FINDINGS: The heart remains enlarged. Persistent blunting the right costophrenic angle noted. Bilate ral patchy density present within the lungs, there is no evident pneumothorax. Surgical clips present in right axilla. There are overlying cardiac leads. Mitral annular calcification noted. IMPRESSION: Findings are similar to prior exam. Right pleural effusion and associated atelectasis, c orrelate for pneumonia, heart failure not excluded.
[2017-09-28 10:33] VITALS: BP 91/49; PULSE 85; RESP 20
[2017-09-28] MEDS ORDERED: ALPRAZolam 0.25 MG TAB PO PRN (10:33)
--- NOTE | 2017-09-28 11:01 | P.PN ---
Subjective Progress Note Date: 09/28/17 Principal diagnosis: CHF exacerbation, a-fib/RVR Agent seen today in follow-up, her 2 daughters are at the bedside. Patient is laying in bed, she states "I feel like there is something wrong", patient is currently denying any pain, she does not feel as though she is short of breath but, visibly her respirations are shallow and rapid. Objective - Vital Signs Vital signs: Vital Signs Temp 97 F L 09/28/17 04:00 Pulse 85 09/28/17 10:18 Resp 20 09/28/17 10:18 BP 91/49 09/28/17 10:18 Pulse Ox 95 09/28/17 10:18 Intake & Output 09/27/17 09/28/17 09/28/17 18:59 06:59 18:59 Intake Total 960 20 190 Output Total 1500 Balance 960 -1480 190 Weight 55.4 kg 55 kg Intake: IV 20 0.9 20 Oral 960 190 Output: Urine 1500 Other: Voiding Method Toilet Toilet Toilet Bedside Commode Bedside Commode Bedside Commode # Voids 2 - Constitutional General appearance: Present: cooperative, disheveled, mild distress - Respiratory Respiratory: bilateral: other (rapid, shallow respirations) - Cardiovascular Heart sounds: normal: S1, S2 Abnormal Heart Sounds: Present: systolic murmur - Musculoskeletal Musculoskeletal: Present: generalized weakness - Psychiatric Psychiatric: Present: A&O x's 3, appropriate affect, intact judgment & insight - Labs CBC & Chem 7: 09/28/17 05:43 09/28/17 05:43 Labs: Abnormal Lab Results - Last 24 Hours (Table) 09/28/17 09/28/17 Range/Units 05:43 05:43 MCV 103.7 H (80.0-100.0) fL RDW 16.6 H (11.5-15.5) % Lymphocytes # 0.7 L (1.0-4.8) k/uL Sodium 127 L (137-145) mmol/L Chloride 87 L (98-107) mmol/L BUN 53 H (7-17) mg/dL Assessment and Plan (1) Metastatic breast cancer Narrative/Plan: Per discussion with patient's daughters it appears that they are going to go home with some home care and transition to hospice. We did review that patient's breast cancer is stable according to her last tumor marker evaluation. Patient's persistent problem at this time is congestive heart failure. Patient's daughter is asked me to cancel future appointments as well has Faslodex injections. This will be taking care of. Current Visit: Yes Status: Acute Priority: High Code(s): C50.919 - MALIGNANT NEOPLASM OF UNSP SITE OF UNSPECIFIED FEMALE BREAST SNOMED Code(s): 324993178 Plan: Patient was experiencing severe anxiety when I was in the room, rapid respirations, agitated and moving about in the bed. Did order Xanax for patient
--- NOTE | 2017-09-28 11:03 | P.PN ---
Subjective Progress Note Date: 09/28/17 Principal diagnosis: Acute hypoxic respiratory failure secondary to an acute exacerbation of systolic CHF and fluid volume overload This is a very pleasant 81-year-old female patient who follows with Dr. Beltrán as her primary care physician. She has a history of atrial fibrillation anticoagulated with Eliquis, congestive heart failure, CVA/TIA, hypertension, hypothyroidism, osteoarthritis. She also has a history of metastatic breast cancer and is currently on Ibrance. She is a lifelong nonsmoker. No history of COPD/emphysema/asthma. She does follow with Dr. Castañeda in our office. She originally had undergone a thoracentesis for moderate right-sided pleural effusion in May 2017. This was positive for metastatic breast cancer. There is also metastatic lesions throughout the skeletal. She had also undergone repeat thoracentesis just on 09/22/[address] Castañeda in the outpatient setting with another 1200 mL's of fluid removed. The patient has had complaints of shortness of breath for approximately 6 months now. She does have a history of anxiety. She breathes quite shallow and rapidly. Her daughters have noticed this for several months and it has not changed following the thoracentesis at all. She has been given anxiolytics in the past which have not really been proven to help with her tachypnea. She presented here to the emergency room for continued complaints of shortness of breath. Her chest x -ray as compared to the one on September 22 did reveal continued bilateral pleural effusions right greater than left. There is also increased fluid volume overload. She was found to be in atrial fibrillation with a rapid ventricular response initially requiring a Cardizem drip. Echocardiogram reveals mildly impaired left ventricular systolic function with ejection fraction between 45 and 50%. There is severe tricuspid regurgitation and moderate pulmonary hypertension with an RVSP of 66.38 mmHg. The patient is seen today in consultation on the selective care unit. She is currently sitting up in a chair at the bedside. She is awake and alert in no acute distress. She continues with rapid shallow respirations in the high 20s. She is maintaining good O2 saturations in the high 90s on just 2 L/m per nasal cannula. She's been afebrile. Slightly tachycardic. White count 6.6. Hemoglobin 13.6. Creatinine 0.60. Bicarb 20. Influenza screen negative. ProBNP 3090. Troponins negative 2. She has been initiated on Lasix 40 mg IV push every 8 hours and Aldactone. Continued on bronchodilators. On 09/25/2017 patient seen in follow-up. No significant change on the chest x- ray today compared to previous exams, patient remains on IV diuretics with Lasix at 40 mg every 8 hours. Remains tachypneic, but reports less dyspnea today, clinically improving. Heart rate is still tachycardic up to 112 BPM, patient remains in atrial fibrillation, she is afebrile, hemodynamically stable , on 2 L per nasal cannula her pulse ox is 96%. Today's proBNP is 2620. She is in negative to 283 mL fluid balance over the last 24 hours. Today's lab work has been reviewed, and shows no evidence of leukocytosis, serum sodium is 133, potassium is 4.6, BUN is 28, and creatinine is 0.70. Denies any chest pain. Continue current plan of treatment, code status was discussed with the patient and the patient wishes no heroic measures, no life support in case her condition deteriorates. This was discussed in the presence of her 2 daughters. Patient's long-term prognosis is poor in view of metastatic malignancy, her home abilities, advanced age. We'll continue to follow, we may consider consulting CT surgery for placement of Pleurx catheter in the event right pleural fluid reaccumulates fast despite conservative measures. On 09/27/2017 patient seen in follow-up. Sitting up in the chair, on room air pulse ox is 94%, patient appears to be less tachypneic compared to previous exams. Appears to be less dyspneic, and she reports less shortness of breath at rest. She is afebrile, hemodynamically stable. She remains on IV diuretics with Lasix at 60 mg every 8 hours, today's chest x-ray was reviewed by Dr. Castañeda and shows slight interval improvement in aeration bilaterally. Clinically patient is improving, although her long-term prognosis is quite poor in view of metastatic malignancy, and poor left ventricular systolic function, chronic A. fib, and multiple other comorbidities. Patient may still need placement of Pleurx catheter if fluid re-accumulates. This was discussed with the patient and the family, who understand and agree with the plan. On 09/28/2017 patient seen and examined again on selective care unit. She appears to be weak and worn out, she is making frequent trips to the bathroom related to IV diuresis. She remains tachypneic, although she states her breathing is somewhat better. Lung sounds positive for diminished air entry over right posterior lower lobe, with some scattered crackles on the left. Repeat chest x-ray was obtained and showed system blunting of the right costophrenic angle distant with right pleural effusion and associated atelectasis, and there is interstitial prominence, related to congestive heart failure versus lymphangytic carcinomatosis related to metastatic breast cancer. She remains on IV diuretics Lasix 60 mg every 8 hours, we will decrease the IV Lasix to 20 mg once daily, her labs today show that she is developing prerenal azotemia. CODE STATUS was again discussed with patient's family, and palliative care was recommended in view of patient's metastatic breast cancer, multiple comorbidities, overall deconditioned state, acute on chronic failure, and recurrent pleural effusions. One daughter is in favor of proceeding with palliative care and patient home with hospice, however the other daughter would like to discuss it further with the patient. Objective - Vital Signs Vital signs: Vital Signs Temp 97 F L 09/28/17 04:00 Pulse 85 09/28/17 10:18 Resp 20 09/28/17 10:18 BP 91/49 09/28/17 10:18 Pulse Ox 95 09/28/17 10:18 Intake & Output 09/27/17 09/28/17 09/28/17 18:59 06:59 18:59 Intake Total 960 20 190 Output Total 1500 Balance 960 -1480 190 Weight 55.4 kg 55 kg Intake: IV 20 0.9 20 Oral 960 190 Output: Urine 1500 Other: Voiding Method Toilet Toilet Toilet Bedside Commode Bedside Commode Bedside Commode # Voids 2 - Exam - Constitutional General appearance: no acute distress, thin - EENT Eyes: PERRLA ENT: hard of hearing, normal oropharynx Ears: bilateral: normal - Neck Neck: normal ROM Carotids: bilateral: upstroke normal Thyroid: bilateral: normal size - Respiratory Respiratory: right: diminished, dullness, bilateral: rales, but patient overall reports some improvement in her dyspnea - Cardiovascular Rhythm: irregularly irregular Heart sounds: normal: S1, S2 - Gastrointestinal General gastrointestinal: normal bowel sounds, soft - Integumentary Integumentary: decreased turgor - Neurologic Neurologic: CNII-XII intact - Musculoskeletal Musculoskeletal: generalized weakness - Psychiatric Psychiatric: A&O x's 3, appropriate affect, intact judgment & insight - Labs CBC & Chem 7: 09/28/17 05:43 09/28/17 05:43 Labs: Abnormal Lab Results - Last 24 Hours (Table) 09/28/17 09/28/17 Range/Units 05:43 05:43 MCV 103.7 H (80.0-100.0) fL RDW 16.6 H (11.5-15.5) % Lymphocytes # 0.7 L (1.0-4.8) k/uL Sodium 127 L (137-145) mmol/L Chloride 87 L (98-107) mmol/L BUN 53 H (7-17) mg/dL Assessment and Plan Plan: Assessment: #1 Acute hypoxic respiratory failure secondary to an acute exacerbation of systolic congestive heart failure and fluid volume overload. #2 Acute on chronic atrial fibrillation with a rapid ventricular response initially requiring Cardizem drip. Anticoagulated with Eliquis. #3 Severe tricuspid regurgitation with moderate pulmonary hypertension. #4 Recurrent bilateral pleural effusions right greater than left. Status post right-sided thoracentesis initially in May 2017 positive for metastatic breast cancer. Second right-sided thoracentesis performed 09/22/2017 in the outpatient setting. 1200 mL's removed. #5 Metastatic breast cancer with lung and skeletal involvement. Currently on Ibrance. #6 Tachypnea secondary to above. #7 Hypertension. #8 Hyperlipidemia. #9 Hypothyroidism. Plan: Today's chest x-ray was reviewed, and shows persistence of right pleural effusion, and interstitial prominence, which could be related to acute systolic congestive heart failure versus lymphangitic carcinomatosis related to patient' s metastatic breast cancer. Patient is developing prerenal azotemia, and we will decrease the IV Lasix to 20 mg daily. We had a discussion with the patient 's daughters regarding patient's overall poor prognosis, and recommendation was made for palliative care. Family would like to discuss this further with the patient, since CODE STATUS is a DO NOT RESUSCITATE. If patient should become symptomatic related to the right pleural effusion, may consider doing another therapeutic thoracentesis I performed a history & physical examination of the patient and discussed their management with my nurse practitioner, Lisa Ayers. I reviewed the nurse practitioner's note and agree with the documented findings and plan of care. Lung sounds are positive for diminished breath sounds at bilateral bases with scattered rales. The findings and the impression was discussed with the patient. I attest to the documentation by the nurse practitioner. Time with Patient: Less than 30
[2017-09-28 11:29] VITALS: BMI 22.1
[2017-09-28] MEDS ORDERED: LORazepam 0.5 MG TAB PO PRN (12:44)
--- NOTE | 2017-09-28 15:04 | P.PN ---
Subjective Progress Note Date: 09/28/17 This is an 81-year-old female with history of chronic atrial fibrillation, recently found to have metastatic breast disease with metastases to the lungs and associated pleural effusion. She was admitted to the hospital with symptoms of progressively worsening shortness of breath, just prior to her admission here patient did have a pleural tap. X-ray on admission here did reveal some diffuse infiltrates consistent with either CHF or diffuse interstitial disease. Patient was initiated on IV Lasix and Aldactone and a diuresed well. She continued to diurese well through the night last night although this morning states that she doesn't feel her breathing is significantly improved. Chest x-ray which was repeated today does show improvement in heart failure. Sodium 128, down from 137 on admission, potassium 5.1, BUN 42 and creatinine 0.8. Patient is currently in atrial fibrillation with a heart rate of 100. Patient is currently on potassium 10 mEq twice a day which we will discontinue. 09/28/2017 Patient seen and examined, under hospice care today. Blood pressure 90/50, heart rate in the 80s, 95% on room air. CBC normal, sodium 127, potassium 4.9, BUN 53, creatinine 0.8. Objective - Vital Signs Vital signs: Vital Signs Temp 97 F L 09/28/17 04:00 Pulse 85 09/28/17 10:18 Resp 20 09/28/17 10:18 BP 91/49 09/28/17 10:18 Pulse Ox 95 09/28/17 10:18 Intake & Output 09/27/17 09/28/17 09/28/17 18:59 06:59 18:59 Intake Total 960 20 190 Output Total 1500 Balance 960 -1480 190 Weight 55.4 kg 55 kg Intake: IV 20 0.9 20 Oral 960 190 Output: Urine 1500 Other: Voiding Method Toilet Toilet Toilet Bedside Commode Bedside Commode Bedside Commode # Voids 2 - Exam PHYSICAL EXAMINATION: HEENT: Head is atraumatic, normocephalic. Pupils equal, round. Neck is supple. There is no elevated jugular venous pressure. HEART EXAMINATION: Heart S1, S2 normal. No murmur or gallop heard. CHEST EXAMINATION: Lungs reveal diminished breath sounds bilaterally. ABDOMEN: Soft, nontender. Bowel sounds are heard. No organomegaly noted. EXTREMITIES: 2+ peripheral pulses with no evidence of peripheral edema and no calf tenderness noted. NEUROLOGIC patient is awake, . - Labs CBC & Chem 7: 09/28/17 05:43 18 05:43 Labs: Abnormal Lab Results - Last 24 Hours (Table) 09/28/17 09/28/17 Range/Units 05:43 05:43 MCV 103.7 H (80.0-100.0) fL RDW 16.6 H (11.5-15.5) % Lymphocytes # 0.7 L (1.0-4.8) k/uL Sodium 127 L (137-145) mmol/L Chloride 87 L (98-107) mmol/L BUN 53 H (7-17) mg/dL Assessment and Plan Plan: Assessment and plan #1 acute hypoxic respiratory failure secondary to systolic congestive heart failure acute on chronic. #2 metastatic breast cancer with lung and skeletal involvement #3 chronic persistent atrial fibrillation, on Eliquis for anticoagulation #4 recurrent bilateral effusions #5 hypothyroidism #6 hypertension #7 hyperlipidemia Plan Patient is going under hospice care today, we'll follow her with you now on an as-needed basis only, please don't hesitate to call us with any questions. DNP note has been reviewed, I agree with a documented findings and plan of care. Patient was seen and examined.
--- NOTE | 2017-09-29 06:31 | DS ---
DISCHARGE SUMMARY DATE OF ADMISSION: 09/23/2017 DATE OF DISCHARGE: 09/28/2017 FINAL DIAGNOSES: 1. Acute congestive heart failure exacerbation from systolic dysfunction, ejection fraction 45%. 2. Atrial flutter, fibrillation with rapid ventricular rate, uncontrolled. 3. Metastatic breast cancer, status post thoracentesis on the day before admission by Dr. Castañeda. 4. Essential hypertension. 5. Primary osteoarthritis multiple joints. 6. Moderate mitral regurgitation, severe tricuspid regurgitation, nonrheumatic. 7. Secondary pulmonary hypertension due to congestive heart failure, chronic obstructive pulmonary disease. 8. Hyperthyroidism with over replacement from Synthroid. HOSPITAL COURSE: This very pleasant lady who had just had thoracentesis done for metastatic pleural effusion, presented with shortness of breath, found to have atrial flutter with rapid ventricular rate and congestive heart failure exacerbation. The patient is put on IV Lasix. She has started to somewhat better, but overall prognosis was not good not good. The patient's daughters finally decided to make her comfortable and admit her to hospice. The patient is able to communicate and understands her poor prognosis. CONSULTATION: Dr. Castañeda from Pulmonary, Dr. Dejesus from Cardiology, Dr. Rudd from Oncology. ON EXAMINATION: Decreased breath sounds, short of breath. DISCHARGE MEDICATIONS: 1. Lipitor 40 mg q.72 hours. 2. Prilosec 20 mg a day. 3. Eliquis 2.5 p.o. b.i.d. 4. Zestril 5 mg p.o. daily. 5. Lopressor 12.5 p.o. t.i.d. 6. Marinol 5 mg p.o. daily. 7. BuSpar 2.5 p.o. b.i.d. 8. Megace 400 mg p.o. daily. 9. Digoxin 125 mcg p.o. daily. 10.Lasix 40 mg p.o. b.i.d. 11.Ativan 1 mg p.o. q.4 p.r.n. for anxiety. 12.Synthroid 150 mcg p.o. daily. 13.Roxanol 5 mg p.o. q.4 p.r.n. for pain. 14.Scopolamine patch q.72 hours p.r.n. for secretion. 15.Aldactone 30 mg p.o. daily. DISPOSITION: Home with the 2 daughters with [facility]. Discharge planning more than 35 minutes. ADVANCE CARE PLANNING This was done with the patient's 2 daughters and the patient. They decided to make the patient hospice. Different questions were answered. Hospice is being arranged in [place]. Prescriptions were done. I spoke to the social service technician. Total time spent for advanced care planning in addition to discharge summary was about 20 minutes. Follow up with hospice in [place] and follow up with Dr. Greene. SCOTT / CALIX[place]: [id number] /
--- NOTE | 2017-09-30 12:20 | CDI ---
Last Revision, April 2017 Documentation Clarification Form Date: 09/30/17 From: Rebecca Fortunato Joanna Canales, Certified Energy Manager Hours-8:30 am & 5 pm M-F Admit Date: 09/23/2017 1:04:00 PM Patient Name: Savanah Fuller Visit Number: [id number] Discharge Date: 09/28/17 ATTENTION: The Clinical Documentation Specialists (CDI) and [facility] Coding Staff appreciate your assistance in clarifying documentation. Please respond to the clarification below the line at the bottom and electronically sign. The CDI & [facility] Coding staff will review the response and follow-up if needed. Please note: Queries are made part of the Legal Health Record. If you have any questions, please contact the author of this message via ITS. Dr. Armin Dejesus Atrial Flutter with rapid vetricular rate is documented in the H&P, PN 09/25, . History/Risk factors:CHF, mets to lung and pleura, breast cancer, Hypertensive heart disease EKG/telemetry: atrial fibrillation w rate 140 Treatment: IV Cardizem In your professional opinion, in order to capture the severity of condition; can you please clarify the type of atrial flutter if known? Typical/Type I Atypical/Type II Other, please specify Unable to determine Please continue to document in your progress notes and discharge summary in order to capture severity of illness and risk of mortality. Include clinical findings that support your diagnosis. MTDD
== END 2017-09-28 16:46 | disposition hospice, home (50) | DRG 291 ==
LOC: EC 10:16 → 6SEL 13:04
PROVIDERS: ADMIT Hospitalist; ATTEND Hospitalist
DX: I11.0 Hypertensive heart disease with heart failure (principal); J96.01 Acute respiratory failure with hypoxia; C78.00 Secondary malignant neoplasm of unspecified lung; J91.0 Malignant pleural effusion; I48.92 Unspecified atrial flutter; C50.911 Malignant neoplasm of unspecified site of right female breast; I50.23 Acute on chronic systolic (congestive) heart failure; I27.29 Other secondary pulmonary hypertension; I48.2 Chronic atrial fibrillation; I08.1 Rheumatic disorders of both mitral and tricuspid valves; E05.90 Thyrotoxicosis, unspecified without thyrotoxic crisis or storm; Z66 Do not resuscitate; Z51.5 Encounter for palliative care; M19.91 Primary osteoarthritis, unspecified site; E03.9 Hypothyroidism, unspecified; F41.9 Anxiety disorder, unspecified; E78.5 Hyperlipidemia, unspecified; H91.90 Unspecified hearing loss, unspecified ear; H35.30 Unspecified macular degeneration; Z79.01 Long term (current) use of anticoagulants; Z79.890 Hormone replacement therapy; Z79.899 Other long term (current) drug therapy; Z87.39 Personal history of other diseases of the musculoskeletal system and connective tissue; Z86.73 Personal history of transient ischemic attack (TIA), and cerebral infarction without residual deficits; Z79.818 Long term (current) use of other agents affecting estrogen receptors and estrogen levels; Z79.811 Long term (current) use of aromatase inhibitors; Z90.11 Acquired absence of right breast and nipple; Z98.42 Cataract extraction status, left eye; Z98.41 Cataract extraction status, right eye; Z88.8 Allergy status to other drugs, medicaments and biological substances; Z80.1 Family history of malignant neoplasm of trachea, bronchus and lung
CPT/HCPCS: 36415; 70486; 71045; 71046; 76604; 80048; 80053; 80061; 82247; 82550; 82553; 83735; 83880; 84100; 84439; 84443; 84450; 84460; 84484; 85025; 87502; 93005; 93306; 94640; 94760; 96365; 96366; 96375; 99285

== ENCOUNTER → 2017-10-05 | Outpatient (CLI) | payer MEDICARE, BC ==
--- NOTE | 2017-10-05 15:29 | XR ---
EXAMINATION TYPE: XR chest 2V DATE OF EXAM: 10/05/2017 COMPARISON: Prior chest dated 09/28/2017 HISTORY: Breast cancer TECHNIQUE: Frontal and lateral views of the chest are obtained. FINDINGS: Similar findings to prior exam. There is blunting of the right costophrenic angle, obscure d right hemidiaphragm. No evident pneumothorax. Heart size is stable. Interstitium is again increased . Some improvement in aeration in the right upper lobe. Surgical clips present in the right axilla. M itral annular calcification is present. IMPRESSION: There is some improvement in aeration. Extensive interstitial changes again noted.
== END | disposition home or self-care (01) ==
LOC: RADXRMAIN 14:34
PROVIDERS: ATTEND Nurse Practitioner Adult Health
DX: C50.919 Malignant neoplasm of unspecified site of unspecified female breast (principal); R91.8 Other nonspecific abnormal finding of lung field; L27.1 Localized skin eruption due to drugs and medicaments taken internally; I10 Essential (primary) hypertension; I67.89 Other cerebrovascular disease
CPT/HCPCS: 71046

== ENCOUNTER 2017-11-23 07:43 | Day surgery (SDC) | payer MEDICARE, BC ==
[2017-11-23 08:33] VITALS: RESP 18; TEMP 97.5
[2017-11-23 08:37] LABS: Mean Platelet Volume 6.9; Platelet Count 322 k/uL (150-450)
[2017-11-23 09:18] LABS: INR 1.1 (<1.2); Prothrombin Time 10.9 sec (9.0-12.0)
[2017-11-23 10:17] VITALS: BP 156/90; PULSE 88
--- NOTE | 2017-11-23 10:24 | XR ---
EXAMINATION TYPE: XR chest 1V portable DATE OF EXAM: 11/23/2017 COMPARISON: Prior chest 10/05/2017 HISTORY: Status post right thoracentesis TECHNIQUE: Single frontal view of the chest is obtained. FINDINGS: Findings are similar to prior exam. No evident pneumothorax. Interstitium is increased. He art remains enlarged. Residual pleural fluid present in the right hemithorax. Postop changes again se en. There is mitral annular calcification. IMPRESSION: No evident complication status post thoracentesis.
--- NOTE | 2017-11-23 10:59 | US ---
EXAMINATION TYPE: US thoracentesis DATE OF EXAM: 11/23/2017 COMPARISON: NONE HISTORY: Pleural effusion. FINDINGS: Maximal barrier technique was utilized. The skin overlying a suitable pocket of fluid was localized and the overlying skin prepped and draped. Lidocaine was used for local anesthesia. Ultras ound was used with sterile technique. A 5 Maori catheter over guide needle was advanced into the pl eural fluid collection using ultrasound guidance and the catheter advanced, needle removed. Approxim ately 1.3 liter(s) of serous fluid was removed. Catheter was withdrawn and hemostasis achieved. The re is no immediate complication. The patient discharged in stable condition without complication. IMPRESSION: STATUS POST ULTRASOUND GUIDED THORACENTESIS, POST PROCEDURE CHEST X-RAY PENDING. THIS [place] OCEDURE WAS PERFORMED BY THE UNDERSIGNED.
== END 2017-11-23 10:30 | disposition home or self-care (01) ==
LOC: RADPROMAIN 07:43
PROVIDERS: ATTEND Family Medicine
DX: J91.0 Malignant pleural effusion (principal); J18.9 Pneumonia, unspecified organism
CPT/HCPCS: 32555; 71045; 85049; 85610